=== PATIENT | female | born 1990 | race Caucasian/White ===

== ENCOUNTER → 2017-05-01 | Outpatient (CLI) | payer OTHER, BC ==
--- NOTE | 2017-05-03 12:13 | ECHOF ---
Referral Reason:R06.02 Shortness of breath R60.0 Edema MEASUREMENTS -------- HEIGHT: 170.2 cm WEIGHT: 129.3 kg BP: 133/92 RVIDd: 2.3 cm (< 3.3) IVSd: 1.2 cm (0.6 - 1.1) LVIDd: 4.7 cm (3.9 - 5.3) LVPWd: 1.1 cm (0.6 - 1.1) IVSs: 1.6 cm LVIDs: 3.6 cm LVPWs: 1.4 cm LAESV Index (A-L): 15.44 ml/m Ao Diam: 3.5 cm (2.0 - 3.7) AV Cusp: 1.9 cm (1.5 - 2.6) LA Diam: 2.9 cm (2.7 - 3.8) MV EXCURSION: 17.570 mm (> 18.000) MV EF SLOPE: 126 mm/s (70 - 150) EPSS: 1.2 cm MV E Paresh: 0.82 m/s MV DecT: 242 ms MV A Paresh: 0.53 m/s MV E/A Ratio: 1.55 RAP: 5.00 mmHg RVSP: 10.17 mmHg FINDINGS -------- Sinus rhythm. This was a technically adequate study. There is borderline concentric left ventricular hypertrophy. Overall left ventricular systolic function is normal with, an EF between 55 - 60 %. The right ventricle is normal in size and function. Normal LA size by volume 22+/-6 ml/m2. The right atrium is normal in size. The aortic valve is trileaflet, and appears structurally normal. No aortic stenosis or regurgitation. The mitral valve is normal. There is trace mitral regurgitation. Trace tricuspid regurgitation present. There is no evidence of pulmonary hypertension. The right ventricular systolic pressure, as measured by Doppler, is 10.17mmHg. The pulmonic valve is normal. The aortic root size is normal. Normal inferior vena cava with normal inspiratory collapse consistent with estimated right atrial pressure of 5 mmHg. The pericardium is normal. There is no pericardial effusion. CONCLUSIONS -------- 1. Sinus rhythm. 2. The right ventricular systolic pressure, as measured by Doppler, is 10.17mmHg. 3. The aortic root size is normal. 4. There is no pericardial effusion. 5. This was a technically adequate study. 6. There is borderline concentric left ventricular hypertrophy. 7. Overall left ventricular systolic function is normal with, an EF between 55 - 60 %. 8. Normal LA size by volume 22+/-6 ml/m2. 9. The aortic valve is trileaflet, and appears structurally normal. No aortic stenosis or regurgitation. 10. There is trace mitral regurgitation. 11. Trace tricuspid regurgitation present. 12. There is no evidence of pulmonary hypertension. STORE WARE[employer]SE ASSOCIATE: Jay Strong RDCS
== END | disposition home or self-care (01) ==
LOC: RADECHMAIN 16:36
PROVIDERS: ATTEND Family Medicine
DX: R06.02 Shortness of breath (principal); R60.0 Localized edema
CPT/HCPCS: 93306

== ENCOUNTER → 2017-05-18 | Outpatient (CLI) | payer OTHER, BC ==
[2017-05-18 16:52] LABS: Basophils # (A) 0.1 k/uL (0-0.2); Basophils % (A) 1 %; CH 30.1; CHCM 34.1; Eosinophils # (A) 0.2 k/uL (0-0.7); Eosinophils % (A) 2 %; HCT 43.3 % (34.0-46.0); HDW 2.63; Luc # (Auto) 0.37; Luc % (Auto) 4; Lymphocytes # (A) 3.3 k/uL (1.0-4.8); Lymphocytes % (A) 39 %; MCH 30.7 pg (25.0-35.0); MCHC 34.6 g/dL (31.0-37.0); MCV 88.8 fL (80.0-100.0); Mean Platelet Volume 6.6; Monocytes # (A) 0.3 k/uL (0-1.0); Monocytes % (A) 4 %; Neutrophils # (A) 4.3 k/uL (1.3-7.7); Neutrophils % (A) 50 %; RBC 4.87 m/uL (3.80-5.40); RDW 12.8 % (11.5-15.5); WBC 8.5 k/uL (3.8-10.6); WBC (Perox) 7.89
== END | disposition home or self-care (01) ==
LOC: LABPAT 16:31
PROVIDERS: ATTEND Obstetrics & Gynecology
DX: Z01.812 Encounter for preprocedural laboratory examination (principal)
CPT/HCPCS: 85025

== ENCOUNTER 2017-05-26 07:41 | Day surgery (SDC) | payer OTHER, BC ==
[2017-05-20 10:05] VITALS: BMI 46.2
--- NOTE | 2017-05-25 17:18 | P.HPOB ---
History of Present Illness H&P Date: 05/25/17 Chief Complaint: Pelvic pain This is a 26-year-old female 0 para 0 who presents for laparoscopy with possible ablation of endometriosis, possible lysis of adhesions, possible drainage of ovarian cyst. She complains of approximately 8 month history of episodic pelvic pain that is acute and generalized in her entire lower pelvis. Each episode lasts approximately 15 minutes and a sharp and crampy across her lower abdomen. She states when the pain hits she can't do anything else until the pain subsides. Occasionally heat helps a little bit. The pain only occurs when she is dreaming at night and has a dream that sexually arouses her. Pelvic ultrasound was essentially normal however left ovary was not visualized. Prior to 8 months ago, she had previously had dreams like this but no pain. She did have a similar pain when she did orgasm one time. She normally does not orgasm with intercourse. Obstetrical history: . Gynecologic history: No history of sexual transmitted diseases. She currently is on the NuvaRing for control and has no periods on the NuvaRing. Social history: She is single but has a steady boyfriend since 2014. She works in [employer]. Review of Systems Constitutional: Denies chills, Denies fever Eyes: denies blurred vision, denies pain Ears, nose, mouth and throat: Reports headache (Occasional), Denies sore throat Cardiovascular: Denies chest pain, Denies shortness of breath Respiratory: Reports as per HPI Gastrointestinal: Denies abdominal pain, Denies diarrhea, Denies nausea, Denies vomiting Genitourinary: Reports dysmenorrhea (History), Reports pelvic pain, Denies abnormal vaginal bleeding Menstruation: Reports amenorrhea on BC Musculoskeletal: Reports low back pain Integumentary: Denies pruritus, Denies rash Neurological: Reports numbness (Legs) Psychiatric: Reports anxiety, Reports depression, Reports difficulty concentrating, Reports irritability Endocrine: Denies fatigue, Denies weight change Past Medical History Additional Past Medical History / Comment(s): Herniated L5-S1, Hip Dysplasia History of Any Multi-Drug Resistant Organisms: None Reported Past Surgical History: Adenoidectomy, Tonsillectomy Past Anesthesia/Blood Transfusion Reactions: Family History of Problems w/ Anesthesia Additional Past Anesthesia/Blood Transfusion Reaction / Comment(s): Grandfather with nausea, vomiting and migraines after anesthesia. Past Psychological History: Anxiety, Depression Smoking Status: Never smoker Past Alcohol Use History: Occasional Past Drug Use History: None Reported - Past Family History Mother Family Medical History: Thyroid Disorder Medications and Allergies Home Medications Medication Instructions Recorded Confirmed Type Citalopram Hydrobromide [CeleXA] 40 mg PO HS 12/14/14 05/20/17 History Etonogestrel/Ethinyl Estradiol 1 each VG Q30D 12/14/14 05/20/17 History [Nuvaring Vaginal Ring] buPROPion [Wellbutrin] 300 mg PO HS 09/02/15 05/20/17 History Cyclobenzaprine [Flexeril] 10 mg PO BID PRN 05/20/17 05/20/17 History Diuretic(Unknown Name/Dose) 05/20/17 History Allergies Allergy/AdvReac Type Severity Reaction Status Date / Time No Known Allergies Allergy Verified 05/20/17 09:51 Exam Osteopathic Statement: *. No significant issues noted on an osteopathic structural exam other than those noted in the History and Physical/Consult. HEENT: Within normal limits Heart: Regular rate and rhythm Lungs: Clear to auscultation bilaterally Abdomen: Soft, nontender Pelvic exam: Uterus is small, anteverted, with no adnexal masses or tenderness palpated. Extremities: Negative Homans Assessment and Plan (1) Pelvic pain Status: Acute Plan: Proceed with laparoscopy, possible ablation of endometriosis, possible lysis of adhesions, and possible drainage of ovarian cyst. I have discussed the risks, benefits, and alternative therapies for the above- mentioned procedure and for both sedation/anesthesia as well as necessary blood products administration, if indicated, as they pertain to this patient. The patient has indicated her understanding and acceptance of the risks and procedures discussed.
[~2017-05-26 07:41] MED LIST: DEXAMETHASONE SOD PHOSPHATE 10 MG/ML 1 ML VIAL IV ONE; HYDROmorphone 1 MG/ML 1 ML SYRINGE IVP PRN; LACTATED RINGERS 1,000 ML IV SCH; LIDOCAINE 1% 20 ML VIAL (10MG/ML) FOR IV START INTRADERMA PRN; MIDAZOLAM 2 MG/2 ML VIAL IV PRN; ONDANSETRON 4 MG/2 ML VIAL IVP ONE; Pre Op ABX Message 1 EACH MISC MISCELLANE ONE; SCOPOLAMINE 1.5MG/72HR PATCH TRANSDERM ONE
[2017-05-26 08:46] LABS: Potassium 3.7 mmol/L (3.5-5.1)
[2017-05-26] MEDS ORDERED: MIDAZOLAM 2 MG/2 ML VIAL ONE (09:17)
[2017-05-26] MEDS ORDERED: fentaNYL (PF) 50 MCG/ML 2 ML AMP ONE (09:17)
[2017-05-26] MEDS ORDERED: PROPOFOL 10 MG/ML 20 ML VIAL IV ONE (09:17)
[2017-05-26] MEDS ORDERED: NEOSTIGMINE 1 MG/ML 10 ML VIAL ONE (09:17)
[2017-05-26] MEDS ORDERED: GLYCOPYRROLATE 0.2 MG/ML 2 ML VIAL ONE (09:17)
[2017-05-26] MEDS ORDERED: HYDROmorphone (PF) 1 MG/ML ONE (09:17)
[2017-05-26] MEDS ORDERED: LIDOCAINE 1% INJ 10MG/ML (20 ML MDV) ONE (09:17)
[2017-05-26] MEDS ORDERED: ROCURONIUM BROMIDE 10 MG/ML 10 ML VIAL IV ONE (09:17)
[2017-05-26] MEDS ORDERED: KETOROLAC 30 MG/ML 1 ML VIAL ONE (09:17)
[2017-05-26] MEDS ORDERED: SUCCINYLCHOLINE CHLORIDE 100 MG/5 ML SYR IV ONE (09:17)
[2017-05-26] MEDS ORDERED: BUPIVACAINE (PF) 0.25% 30 ML VIAL SQ ONE ×2 (09:41→09:57)
[2017-05-26 10:14] VITALS: TEMP 97.4
[2017-05-26 10:26] VITALS: RESP 16
--- NOTE | 2017-05-26 10:29 | P.OP ---
Date of Procedure: 05/26/17 Preoperative Diagnosis: Pelvic pain Postoperative Diagnosis: Pelvic pain Normal pelvis Procedure(s) Performed: Diagnostic Laparoscopy Implants: Anesthesia: BENJAMIN Surgeon: Melissa Weston Estimated Blood Loss (ml): 7 Pathology: none sent Condition: stable Disposition: same day Indications for Procedure: This is a 26-year-old female 0 para 0 who presents for laparoscopy with possible ablation of endometriosis, possible lysis of adhesions, possible drainage of ovarian cyst. She complains of approximately 8 month history of episodic pelvic pain that is acute and generalized in her entire lower pelvis. Each episode lasts approximately 15 minutes and a sharp and crampy across her lower abdomen. She states when the pain hits she can't do anything else until the pain subsides. Occasionally heat helps a little bit. The pain only occurs when she is dreaming at night and has a dream that sexually arouses her. Pelvic ultrasound was essentially normal however left ovary was not visualized. Prior to 8 months ago, she had previously had dreams like this but no pain. She did have a similar pain when she did orgasm one time. She normally does not orgasm with intercourse. Operative Findings: Normal uterus tubes and ovaries are noted. No evidence of endometriosis or pelvic adhesions are noted. Appendix is not visualized. Description of Procedure: The patient is taken to the operating room where she is placed in the dorsal lithotomy position. She is prepped and draped in the normal sterile fashion. Bladder is drained with a catheter and then removed. Examination is performed under anesthesia. Uterus is found to be mid position, with no adnexal masses palpated. Next a bivalve speculum was placed in the patient's vagina. The anterior lip of the cervix is grasped with a single-tooth tenaculum. Uterus is sounded to 9 cm. Next the cervix is gently dilated with Beckwith dilators. Next a kroner uterine manipulator is inserted through the cervix and the balloon is inflated. Next the single-tooth tenaculum and speculum are removed. A changed and attention is turned to the abdomen. The infraumbilical fold was grasped in transverse fashion with 2 Allis clamps. A small transverse incision is made with a scalpel. A hemostat is used to carry the incision down to the underlying layer of fascia. A towel clip was placed above the umbilicus for retraction. An 11 mm bladeless trocar is then inserted into the peritoneal cavity under direct visualization. Once inside the pneumoperitoneum was achieved with CO2 gas. The insert is removed and the camera was replaced. No bleeding is noted. Next a small stab incision is made suprapubically and a 5 mm disposable bladeless trocar is inserted into the peritoneal cavity under direct visualization. A probe was inserted and pelvic contents are inspected. She is placed in Trendelenburg position. The bowels removed from the pelvic region with a probe. Pictures are taken. Normal pelvis is noted. No abnormalities or endometriosis are noted. Once pictures were completed, the inferior trocar is removed under direct visualization. No bleeding is noted. Pneumoperitoneum is released and the upper trocar is removed. The fascial incision on the upper trocar site is closed with 0 Vicryl suture in an interrupted [id number] stitch. Skin incisions are then closed with 4-0 undyed Vicryl suture in a subcuticular fashion. Incision sites are then injected with quarter percent Marcaine. Approximately 6 mL are used. Next the kroner uterine manipulator is deflated and removed. All sponge and needle counts are correct.
[2017-05-26 11:35] VITALS: BP 129/80; PULSE 92
== END 2017-05-26 14:01 | disposition home or self-care (01) ==
LOC: OR 07:41
PROVIDERS: ATTEND Obstetrics & Gynecology
DX: R10.2 Pelvic and perineal pain (principal); F41.9 Anxiety disorder, unspecified; F32.9 Major depressive disorder, single episode, unspecified; Z79.899 Other long term (current) drug therapy; M51.27 Other intervertebral disc displacement, lumbosacral region
CPT/HCPCS: 81025; 80051; 49320; J2250; J1100; J2710; J2405; J2001; J3010; J1885; J1170; J0330; J2704

== ENCOUNTER 2019-05-08 19:02 | Inpatient (IN) | payer BC, OTHER ==
[2019-05-08] MEDS ORDERED: IBUPROFEN 600 MG TAB PO STA (19:44)
[2019-05-08] MEDS ORDERED: MORPHINE SULFATE 4 MG/ML SYRINGE IVP STA (19:45)
[2019-05-08] MEDS ORDERED: ONDANSETRON 4 MG/2 ML VIAL IVP STA (19:45)
--- NOTE | 2019-05-08 20:06 | ED ---
General Adult HPI - General Chief complaint: Skin/Abscess/Foreign Body Stated complaint: Urogenital Time Seen by Provider: 05/08/19 19:24 Source: patient Mode of arrival: ambulatory Limitations: no limitations - History of Present Illness Initial comments: 28-year-old female patient presents to the emergency department today for evaluation of pilonidal cyst. Patient states that she developed pain and swelling little over a week ago. States she was seen and evaluated at urgent care 7 days ago was diagnosed with pilonidal cyst and given a prescription for Bactrim. She states it did not perform incision and drainage. States she has been taking the medication however the area has been worsening in both pain and size over the last 3 days. States she developed a fever yesterday. States that today the area started to drain purulent foul-smelling drainage. States that she has been nauseated today. Denies any vomiting. Patient denies any recent rash, cough, shortness breath, chest pain, abdominal pain, diarrhea, constipation, back pain, numbness, tingling, dizziness, weakness, hematuria, dysuria, urinary urgency, urinary frequency, headache, visual changes, or any other complaints. Denies chance of . - Related Data Home Medications Medication Instructions Recorded Confirmed ARIPiprazole [Abilify] 15 mg PO HS 05/08/19 05/08/19 Citalopram Hydrobromide [CeleXA] 40 mg PO HS 05/08/19 05/08/19 Sulfamethox-Tmp 800-160Mg [Bactrim 1 tab PO BID 05/08/19 05/08/19 DS 800-160 mg] Allergies Allergy/AdvReac Type Severity Reaction Status Date / Time ibuprofen [From Motrin IB] Allergy FACE TINGLE Verified 05/08/19 22:06 Review of Systems ROS Statement: Those systems with pertinent positive or pertinent negative responses have been documented in the HPI. ROS Other: All systems not noted in ROS Statement are negative. Past Medical History Additional Past Medical History / Comment(s): Herniated L5-S1, Hip Dysplasia History of Any Multi-Drug Resistant Organisms: None Reported Past Surgical History: Adenoidectomy, Tonsillectomy Past Anesthesia/Blood Transfusion Reactions: Family History of Problems w/ Anesthesia Additional Past Anesthesia/Blood Transfusion Reaction / Comment(s): Grandfather with nausea, vomiting and migraines after anesthesia. Past Psychological History: Anxiety, Depression Smoking Status: Never smoker Past Alcohol Use History: Occasional Past Drug Use History: None Reported - Past Family History Mother Family Medical History: Thyroid Disorder General Exam Limitations: no limitations General appearance: alert, in no apparent distress, other (This is a well- developed, well-nourished adult female patient in no acute distress. Vital signs upon presentation are temperature 101.1F, pulse 110, respirations 16, blood pressure 135/88, pulse ox 96% on room air.) Eye exam: Present: normal appearance, PERRL, EOMI. Absent: scleral icterus, conjunctival injection, periorbital swelling ENT exam: Present: normal exam, normal oropharynx, mucous membranes moist Respiratory exam: Present: normal lung sounds bilaterally. Absent: respiratory distress, wheezes, rales, rhonchi, stridor Cardiovascular Exam: Present: normal rhythm, tachycardia, normal heart sounds. Absent: systolic murmur, diastolic murmur, rubs, gallop, clicks GI/Abdominal exam: Present: soft, normal bowel sounds. Absent: distended, tenderness, guarding, rebound, rigid Rectal exam: Present: other (There is abscess, erythema, cellulitis noted in the superior gluteal cleft. There is purulent drainage. No perianal tenderness.) Neurological exam: Present: alert, oriented X3, CN II-XII intact Psychiatric exam: Present: normal affect, normal mood Skin exam: Present: warm, dry, intact, normal color. Absent: rash Course Vital Signs 05/08/19 19:19 Temperature 101.1 F H Pulse Rate 110 H Respiratory 16 Rate Blood Pressure 135/88 O2 Sat by Pulse 96 Oximetry Medical Decision Making - Medical Decision Making 28-year-old female patient presented to the emergency department today for rica luation of draining pilonidal abscess. Physical examination does reveal large pilonidal abscess with surrounding cellulitis. Patient has been taking Bactrim for one week. Labs reviewed and did reveal elevated white blood cell count. Culture was sent. Patient will be admitted for failure of outpatient treatment of, and I will abscess and surgical consultation. Patient is agreeable with this plan. - Lab Data Result diagrams: 05/08/19 20:24 05/08/19 20:24 Lab Results 05/08/19 05/08/19 05/08/19 Range/Units 20:24 20:24 20:24 WBC 11.6 H (3.8-10.6) k/uL RBC 4.34 (3.80-5.40) m/uL Hgb 12.7 (11.4-16.0) gm/dL Hct 38.5 (34.0-46.0) % MCV 88.9 (80.0-100.0) fL MCH 29.4 (25.0-35.0) pg MCHC 33.1 (31.0-37.0) g/dL RDW 13.0 (11.5-15.5) % Plt Count 290 (150-450) k/uL Neutrophils % 72 % Lymphocytes % 18 % Monocytes % 5 % Eosinophils % 2 % Basophils % 0 % Neutrophils # 8.4 H (1.3-7.7) k/uL Lymphocytes # 2.1 (1.0-4.8) k/uL Monocytes # 0.6 (0-1.0) k/uL Eosinophils # 0.2 (0-0.7) k/uL Basophils # 0.0 (0-0.2) k/uL PT (9.0-12.0) sec INR (<1.2) APTT (22.0-30.0) sec Sodium 138 (137-145) mmol/L Potassium 3.7 (3.5-5.1) mmol/L Chloride 104 (98-107) mmol/L Carbon Dioxide 23 (22-30) mmol/L Anion Gap 11 mmol/L BUN 10 (7-17) mg/dL Creatinine 0.85 (0.52-1.04) mg/dL Est GFR (CKD-EPI)AfAm >90 (>60 ml/min/1.73 sqM) Est GFR (CKD-EPI)NonAf >90 (>60 ml/min/1.73 sqM) Glucose 92 (74-99) mg/dL Plasma Lactic Acid Slick 1.2 (0.7-2.0) mmol/L Calcium 8.7 (8.4-10.2) mg/dL Total Bilirubin 1.1 (0.2-1.3) mg/dL AST 20 (14-36) U/L ALT 22 (9-52) U/L Alkaline Phosphatase 63 (38-126) U/L Total Protein 7.2 (6.3-8.2) g/dL Albumin 3.7 (3.5-5.0) g/dL Urine Color Urine Appearance (Clear) Urine pH (5.0-8.0) Ur Specific [place] (1.001-1.035) Urine Protein (Negative) Urine Glucose (UA) (Negative) Urine Ketones (Negative) Urine Blood (Negative) Urine Nitrite (Negative) Urine Bilirubin (Negative) Urine Urobilinogen (<2.0) mg/dL Ur Leukocyte Esterase (Negative) Urine RBC (0-5) /hpf Urine WBC (0-5) /hpf Ur Squamous Epith Cells (0-4) /hpf Urine Bacteria (None) /hpf Urine Mucus (None) /hpf Urine HCG, Qual (Not Detectd) 05/08/19 05/08/19 05/08/19 Range/Units 20:24 21:12 21:12 WBC (3.8-10.6) k/uL RBC (3.80-5.40) m/uL Hgb (11.4-16.0) gm/dL Hct (34.0-46.0) % MCV (80.0-100.0) fL MCH (25.0-35.0) pg MCHC (31.0-37.0) g/dL RDW (11.5-15.5) % Plt Count (150-450) k/uL Neutrophils % % Lymphocytes % % Monocytes % % Eosinophils % % Basophils % % Neutrophils # (1.3-7.7) k/uL Lymphocytes # (1.0-4.8) k/uL Monocytes # (0-1.0) k/uL Eosinophils # (0-0.7) k/uL Basophils # (0-0.2) k/uL PT 10.3 (9.0-12.0) sec INR 1.0 (<1.2) APTT 25.8 (22.0-30.0) sec Sodium (137-145) mmol/L Potassium (3.5-5.1) mmol/L Chloride (98-107) mmol/L Carbon Dioxide (22-30) mmol/L Anion Gap mmol/L BUN (7-17) mg/dL Creatinine (0.52-1.04) mg/dL Est GFR (CKD-EPI)AfAm (>60 ml/min/1.73 sqM) Est GFR (CKD-EPI)NonAf (>60 ml/min/1.73 sqM) Glucose (74-99) mg/dL Plasma Lactic Acid Slick (0.7-2.0) mmol/L Calcium (8.4-10.2) mg/dL Total Bilirubin (0.2-1.3) mg/dL AST (14-36) U/L ALT (9-52) U/L Alkaline Phosphatase (38-126) U/L Total Protein (6.3-8.2) g/dL Albumin (3.5-5.0) g/dL Urine Color Yellow Urine Appearance Cloudy H (Clear) Urine pH 6.5 (5.0-8.0) Ur Specific [place] 1.031 (1.001-1.035) Urine Protein 1+ H (Negative) Urine Glucose (UA) Negative (Negative) Urine Ketones Trace H (Negative) Urine Blood Trace H (Negative) Urine Nitrite Negative (Negative) Urine Bilirubin Negative (Negative) Urine Urobilinogen >12.0 (<2.0) mg/dL Ur Leukocyte Esterase Small H (Negative) Urine RBC 6 H (0-5) /hpf Urine WBC 5 (0-5) /hpf Ur Squamous Epith Cells 3 (0-4) /hpf Urine Bacteria Few H (None) /hpf Urine Mucus Many H (None) /hpf Urine HCG, Qual Not Detected (Not Detectd) Disposition Clinical Impression: Pilonidal abscess, Cellulitis, Failure of outpatient treatment Disposition: ADMITTED IP TO THIS [facility] Condition: Serious Referrals: Cale Mary III, MD [Primary Care Provider] - 1-2 days Decision to Admit Reason: Admit from EC Decision Date: 05/08/19 Decision Time: 22:07
[2019-05-08] MEDS: SODIUM CHLORIDE 0.9% 500 ML 500 ML IV SCH ×3 (20:16→22:15)
[2019-05-08 21:00] LABS: Basophils % (A) 0 %; Eosinophils # (A) 0.2 k/uL (0-0.7); Eosinophils % (A) 2 %; HCT 38.5 % (34.0-46.0); HGB 12.7 gm/dL (11.4-16.0); Lymphocytes # (A) 2.1 k/uL (1.0-4.8); Lymphocytes % (A) 18 %; MCH 29.4 pg (25.0-35.0); MCHC 33.1 g/dL (31.0-37.0); MCV 88.9 fL (80.0-100.0); Mean Platelet Volume 7.1; Monocytes # (A) 0.6 k/uL (0-1.0); Monocytes % (A) 5 %; Neutrophils # (A) 8.4 k/uL (1.3-7.7); Neutrophils % (A) 72 %; Platelet Count 290 k/uL (150-450); RBC 4.34 m/uL (3.80-5.40); WBC 11.6 k/uL (3.8-10.6)
[2019-05-08 21:05] LABS: ALT 22 U/L (9-52); AST 20 U/L (14-36); African American GFR (CKD) >90 (>60 ml/min/1.73 sqM); Albumin 3.7 g/dL (3.5-5.0); Alkaline Phosphatase 63 U/L (38-126); Anion Gap 11 mmol/L; Blood Urea Nitrogen 10 mg/dL (7-17); Calcium 8.7 mg/dL (8.4-10.2); Carbon Dioxide 23 mmol/L (22-30); Chloride 104 mmol/L (98-107); Glucose 92 mg/dL (74-99); Potassium 3.7 mmol/L (3.5-5.1); Sodium 138 mmol/L (137-145); Total Bilirubin 1.1 mg/dL (0.2-1.3); Total Protein 7.2 g/dL (6.3-8.2)
[2019-05-08 21:15] LABS: Partial Thromboplastin Time 25.8 sec (22.0-30.0); Prothrombin Time 10.3 sec (9.0-12.0)
[2019-05-08 21:26] LABS: Appearance,Urine Cloudy (Clear); Bacteria,Urine Few /hpf; Bilirubin,Urine Negative (Negative); Blood,Urine Trace (Negative); Color,Urine Yellow; Glucose,Urine (UA) Negative (Negative); Ketones,Urine Trace (Negative); Leukocyte Esterase,Urine Small (Negative); Mucus,Urine Many /hpf; Nitrite,Urine Negative (Negative); PH, Urine 6.5 (5.0-8.0); Protein,Urine 1+ (Negative); RBC,Urine 6 /hpf (0-5); Specific Gravity,Urine 1.031 (1.001-1.035); Squamous Epithelial Cell,Urine 3 /hpf (0-4); Urobilinogen,Urine >12.0 mg/dL (<2.0); WBC,Urine 5 /hpf (0-5)
[2019-05-08] MEDS ORDERED: ACETAMINOPHEN TAB 325 MG TAB PO PRN (22:07)
[2019-05-08] MEDS ORDERED: ONDANSETRON 4 MG/2 ML VIAL IVP PRN (22:07)
[2019-05-08] MEDS ORDERED: NALOXONE 0.4 MG/ML 1 ML VIAL IV PRN (22:07)
[2019-05-08] MEDS ORDERED: VANCOMYCIN IV PER PHARMACY 1 EACH MISC MISCELLANE PRN (22:26)
[2019-05-08] MEDS ORDERED: VANCOMYCIN 2,000 MG in SODIUM CHLORIDE 0.9% 500 ML 500 ML IVPB STA (22:28)
[2019-05-08] MEDS: CITALOPRAM HYDROBROMIDE 20 MG TAB PO SCH (23:03)
[2019-05-08] MEDS: ARIPiprazole 15 MG TAB PO SCH (23:05)
[2019-05-09] MEDS: SODIUM CHLORIDE 0.9% 1,000 ML IV SCH (00:06)
[2019-05-09 05:56] LABS: Basophils % (A) 1 %; Eosinophils # (A) 0.3 k/uL (0-0.7); Eosinophils % (A) 3 %; HCT 37.8 % (34.0-46.0); HGB 12.3 gm/dL (11.4-16.0); Lymphocytes # (A) 2.6 k/uL (1.0-4.8); Lymphocytes % (A) 29 %; MCH 29.8 pg (25.0-35.0); MCHC 32.7 g/dL (31.0-37.0); MCV 91.3 fL (80.0-100.0); Mean Platelet Volume 7.3; Monocytes # (A) 0.4 k/uL (0-1.0); Monocytes % (A) 5 %; Neutrophils # (A) 5.4 k/uL (1.3-7.7); Neutrophils % (A) 60 %; Platelet Count 281 k/uL (150-450); RBC 4.14 m/uL (3.80-5.40); RDW 14.3 % (11.5-15.5); WBC 8.9 k/uL (3.8-10.6)
--- NOTE | 2019-05-09 09:31 | P.GSCN ---
History of Present Illness Consult date: 05/09/19 Reason for Consult: pilonidal abscess History of present illness: The patient is a 28-year-old female who developed an infection in a pilonidal cyst about a week ago. She was seen in urgent care and started on oral antibiotics. She was slated to see me in the office on . The drainage began yesterday and she developed worsened pain. She had a fever. It began draining and is a little less tender. No history of previous pilonidal cyst abscesses. No history of MRSA or exposure. Past Medical History Additional Past Medical History / Comment(s): Herniated L5-S1, Hip Dysplasia, pilonidal cyst 05/2019 History of Any Multi-Drug Resistant Organisms: None Reported Past Surgical History: Adenoidectomy, Tonsillectomy Past Anesthesia/Blood Transfusion Reactions: Family History of Problems w/ Anesthesia Additional Past Anesthesia/Blood Transfusion Reaction / Comm: Grandfather with nausea, vomiting and migraines after anesthesia. Past Psychological History: Anxiety, Depression Smoking Status: Never smoker Past Alcohol Use History: Occasional Past Drug Use History: None Reported - Past Family History Mother Family Medical History: Thyroid Disorder Father History Unknown: Yes Medications and Allergies Home Medications Medication Instructions Recorded Confirmed Type ARIPiprazole [Abilify] 15 mg PO HS 05/08/19 05/08/19 History Citalopram Hydrobromide [CeleXA] 40 mg PO HS 05/08/19 05/08/19 History Sulfamethox-Tmp 800-160Mg [Bactrim 1 tab PO BID 05/08/19 05/08/19 History DS 800-160 mg] Allergies Allergy/AdvReac Type Severity Reaction Status Date / Time ibuprofen [From Motrin IB] Allergy FACE TINGLE Verified 05/08/19 23:37 Surgical - Exam Osteopathic Statement: *. No significant issues noted on an osteopathic structural exam other than those noted in the History and Physical/Consult. Vital Signs Temp Pulse Resp BP Pulse Ox 101.1 F H 110 H 16 135/88 96 05/08/19 19:19 05/08/19 19:19 05/08/19 19:19 05/08/19 19:19 05/08/19 19:19 - General well developed, well nourished, no distress - Eyes normal ocular movement - Neck trachea midline - Respiratory normal respiratory effort, clear to auscultation - Integumentary There is a 5 x 12 cm area of erythema, swelling, fluctuance over the sacrum. To the right there is a skin opening with a scant amount of drainage. Results - Labs 05/09/19 05:32 05/08/19 20:24 Abnormal Lab Results - Last 24 Hours (Table) 05/08/19 05/08/19 Range/Units 20:24 21:12 WBC 11.6 H (3.8-10.6) k/uL Neutrophils # 8.4 H (1.3-7.7) k/uL Urine Appearance Cloudy H (Clear) Urine Protein 1+ H (Negative) Urine Ketones Trace H (Negative) Urine Blood Trace H (Negative) Ur Leukocyte Esterase Small H (Negative) Urine RBC 6 H (0-5) /hpf Urine Bacteria Few H (None) /hpf Urine Mucus Many H (None) /hpf Microbiology - Last 24 Hours (Table) 05/08/19 20:11 Gram Stain - Preliminary Buttock Wound Culture - Preliminary Diabetes panel 05/08/19 Range/Units 20:24 Sodium 138 (137-145) mmol/L Potassium 3.7 (3.5-5.1) mmol/L Chloride 104 (98-107) mmol/L Carbon Dioxide 23 (22-30) mmol/L BUN 10 (7-17) mg/dL Creatinine 0.85 (0.52-1.04) mg/dL Glucose 92 (74-99) mg/dL Calcium 8.7 (8.4-10.2) mg/dL AST 20 (14-36) U/L ALT 22 (9-52) U/L Alkaline Phosphatase 63 (38-126) U/L Total Protein 7.2 (6.3-8.2) g/dL Albumin 3.7 (3.5-5.0) g/dL Calcium panel 05/08/19 Range/Units 20:24 Calcium 8.7 (8.4-10.2) mg/dL Albumin 3.7 (3.5-5.0) g/dL Pituitary panel 05/08/19 Range/Units 20:24 Sodium 138 (137-145) mmol/L Potassium 3.7 (3.5-5.1) mmol/L Chloride 104 (98-107) mmol/L Carbon Dioxide 23 (22-30) mmol/L BUN 10 (7-17) mg/dL Creatinine 0.85 (0.52-1.04) mg/dL Glucose 92 (74-99) mg/dL Calcium 8.7 (8.4-10.2) mg/dL Adrenal panel 05/08/19 Range/Units 20:24 Sodium 138 (137-145) mmol/L Potassium 3.7 (3.5-5.1) mmol/L Chloride 104 (98-107) mmol/L Carbon Dioxide 23 (22-30) mmol/L BUN 10 (7-17) mg/dL Creatinine 0.85 (0.52-1.04) mg/dL Glucose 92 (74-99) mg/dL Calcium 8.7 (8.4-10.2) mg/dL Total Bilirubin 1.1 (0.2-1.3) mg/dL AST 20 (14-36) U/L ALT 22 (9-52) U/L Alkaline Phosphatase 63 (38-126) U/L Total Protein 7.2 (6.3-8.2) g/dL Albumin 3.7 (3.5-5.0) g/dL Assessment and Plan (1) Pilonidal abscess Current Visit: Yes Status: Acute Code(s): L05.01 - PILONIDAL CYST WITH ABSCESS SNOMED Code(s): 20446201 Plan: The patient will be taken to the OR for incision and drainage of abscess. The usual postoperative course was discussed. We'll need to arrange home health for wound irrigation and packing. Once infection has resolved, we can discuss a elective surgery for excision of the pilonidal cyst. I explained the reasoning for this. The procedure, risks, complications were discussed. Questions were encouraged and answered.
[2019-05-09] MEDS ORDERED: IV FLUID CONTINUATION 1,000 ML IV ONE (10:09)
[2019-05-09] MEDS ORDERED: PROPOFOL 10 MG/ML 20 ML VIAL IV ONE (10:25)
[2019-05-09] MEDS ORDERED: LIDOCAINE 1% INJ 10MG/ML (20 ML MDV) ONE (10:25)
[2019-05-09] MEDS ORDERED: fentaNYL (PF) 50 MCG/ML 2 ML AMP ONE (10:25)
[2019-05-09] MEDS ORDERED: MIDAZOLAM 2 MG/2 ML VIAL ONE (10:25)
[2019-05-09] MEDS ORDERED: NALOXONE 0.4 MG/ML 1 ML VIAL IV PRN (11:02)
[2019-05-09] MEDS ORDERED: HYDROcodone/APAP 5-325MG 1 EACH TAB PO PRN (11:02)
--- NOTE | 2019-05-09 11:06 | P.OP ---
Date of Procedure: 05/09/19 Preoperative Diagnosis: Pilonidal cyst abscess Postoperative Diagnosis: Pilonidal cyst abscess Procedure(s) Performed: Incision and drainage of pilonidal cyst abscess Anesthesia: BENJAMIN Surgeon: Yesica Prince Estimated Blood Loss (ml): 50 Pathology: none sent Condition: stable Disposition: PACU Indications for Procedure: Patient presented with a symptomatic pilonidal cyst abscess Description of Procedure: The patient was taken to the operative suite where she is prepped and draped in the usual sterile manner under general endotracheal anesthetic. A skin incision is made over the fluctuant area where there is a small amount of drainage. A finger is then used to probe the wound and break up loculations. The wound was noted to "horseshoe "over the midline. There was another superficial area to the left of the midline. A separate stab incision was made there. And was then irrigated with normal saline. It was packed with 1 inch iodoform gauze. A dressing was applied. She tolerated the procedure without difficulty and was taken recovery room in satisfactory condition. According to or personnel, ARE correct.
[2019-05-09] MEDS: MORPHINE SULFATE 4 MG/ML SYRINGE IV PRN ×4 (11:34→22:27)
--- NOTE | 2019-05-09 12:11 | P.HPIM ---
History of Present Illness This is a pleasant 28 years old female with no significant past medical history. She presents because of pilonidal cyst, from pain and swelling at the site for 1 week. On admission patient has been febrile with 101, with mild leukocytosis at 11.6 K. Around the biopsy came back to normal at 8.9K, rest of labs were unremarkable. Patient is already been evaluated by surgery team and undergone incision and drainage of the pilonidal cyst and abscess. Patient with no abdominal pain or chest pain. She is awake after the surgery but she feels a little bit lethargic. Review of Systems CONSTITUTIONAL: No fever, no malaise, no fatigue. HEENT: No recent visual problems or hearing problems. Denied any sore throat. CARDIOVASCULAR: No orthopnea, PND, no palpitations, no syncope. PULMONARY: No shortness of breath, no cough, no hemoptysis. GASTROINTESTINAL: No diarrhea, no nausea, no vomiting, no abdominal pain. Normoactive bowel sounds. NEUROLOGICAL: No headaches, no weakness, no numbness. HEMATOLOGICAL: Denies any bleeding or petechiae. GENITOURINARY: Denies any burning micturition, frequency, or urgency. MUSCULOSKELETAL/RHEUMATOLOGICAL: Denies any joint pain, swelling, or any muscle pain. ENDOCRINE: Denies any polyuria or polydipsia. Past Medical History Additional Past Medical History / Comment(s): Herniated L5-S1, Hip Dysplasia, p ilonidal cyst 05/2019 History of Any Multi-Drug Resistant Organisms: None Reported Past Surgical History: Adenoidectomy, Tonsillectomy Past Anesthesia/Blood Transfusion Reactions: Family History of Problems w/ Anesthesia Additional Past Anesthesia/Blood Transfusion Reaction / Comment(s): Grandfather with nausea, vomiting and migraines after anesthesia. Past Psychological History: Anxiety, Depression Smoking Status: Never smoker Past Alcohol Use History: Occasional Past Drug Use History: None Reported - Past Family History Mother Family Medical History: Thyroid Disorder Father History Unknown: Yes Medications and Allergies Home Medications Medication Instructions Recorded Confirmed Type ARIPiprazole [Abilify] 15 mg PO HS 05/08/19 05/08/19 History Citalopram Hydrobromide [CeleXA] 40 mg PO HS 05/08/19 05/08/19 History Sulfamethox-Tmp 800-160Mg [Bactrim 1 tab PO BID 05/08/19 05/08/19 History DS 800-160 mg] Allergies Allergy/AdvReac Type Severity Reaction Status Date / Time ibuprofen [From Motrin IB] Allergy FACE TINGLE Verified 05/08/19 23:37 Physical Exam Vitals: Vital Signs Temp Pulse Pulse Resp BP BP BP 05/09/19 11:55 97.3 F L 84 18 120/54 05/09/19 11:30 65 16 142/74 05/09/19 11:15 99.2 F 101 H 18 137/79 05/09/19 10:16 97.6 F 82 16 05/09/19 07:10 97.4 F L 83 18 05/08/19 23:58 97.7 F 74 18 05/08/19 22:23 99 F 84 17 114/63 05/08/19 19:19 101.1 F H 110 H 16 135/88 BP Pulse Ox 05/09/19 11:55 96 05/09/19 11:30 98 05/09/19 11:15 96 05/09/19 10:16 129/59 99 05/09/19 07:10 110/74 100 05/08/19 23:58 126/72 97 05/08/19 22:23 95 05/08/19 19:19 96 Intake and Output 05/08/19 05/09/19 05/09/19 22:59 06:59 14:59 Intake Total 650 Balance 650 Intake: IV 650 Other: Voiding Method Toilet Toilet # Voids 1 Weight 147.418 kg GENERAL: The patient is alert and oriented x3, not in any acute distress. Well developed, well nourished. HEENT: Pupils are round and equally reacting to light. EOMI. No scleral icterus. No conjunctival pallor. Normocephalic, atraumatic. No pharyngeal erythema. No thyromegaly. CARDIOVASCULAR: S1 and S2 present. No murmurs, rubs, or gallops. PULMONARY: Chest is clear to auscultation, no wheezing or crackles. -ABDOMEN: Soft, nontender, nondistended, normoactive bowel sounds. No palpable organomegaly. Pilonidal sinus surgical site is in dressing, patient does not want to take the dressing off today and we will defer the rest of the examination to surgery team MUSCULOSKELETAL: No joint swelling or deformity. EXTREMITIES: No cyanosis, clubbing, or pedal edema. NEUROLOGICAL: Gross neurological examination did not reveal any focal deficits. SKIN: No rashes. Results CBC & Chem 7: 05/09/19 05:32 05/08/19 20:24 Labs: Abnormal Lab Results - Last 24 Hours (Table) 05/08/19 05/08/19 Range/Units 20:24 21:12 WBC 11.6 H (3.8-10.6) k/uL Neutrophils # 8.4 H (1.3-7.7) k/uL Urine Appearance Cloudy H (Clear) Urine Protein 1+ H (Negative) Urine Ketones Trace H (Negative) Urine Blood Trace H (Negative) Ur Leukocyte Esterase Small H (Negative) Urine RBC 6 H (0-5) /hpf Urine Bacteria Few H (None) /hpf Urine Mucus Many H (None) /hpf Microbiology - Last 24 Hours (Table) 05/08/19 20:11 Gram Stain - Preliminary Buttock Wound Culture - Preliminary Thrombosis Risk Factor Assmnt - Choose All That Apply Each Factor Represents 1 point: Hx of IBD, Obesity (BMI >25) Other Risk Factors: No Other congenital or acquired thrombophilia - If yes, enter type in comment: No Thrombosis Risk Factor Assessment Total Risk Factor Score: 2 Thrombosis Risk Factor Assessment Level: Low Risk Assessment and Plan Assessment: pilonidal cyst and abscess status post I and D Systemic inflammatory response with fever and leukocytosis Sepsis secondary to above Plan: This is a pleasant 28 years old female who presents with pilonidal sinus and abscess. Status post I and D by surgical team. We'll consult infectious disease to help with antibiotics. Labs and medication were reviewed.. Continue same treatment. Continue with symptomatic treatment. Resume home medication. Monitor lytes and vitals. DVT and GI prophylaxis. Further recommendations of the clinical course of the patient DVT prophylaxis: Subcutaneous heparin GI Prophylaxis: Pepcid
[2019-05-09] MEDS: HYDROcodone/APAP 5-325MG 1 EACH TAB PO PRN ×2 (12:24→20:12)
[2019-05-09] MEDS: VANCOMYCIN 2,000 MG in SODIUM CHLORIDE 0.9% 500 ML 500 ML IVPB SCH (12:29)
--- NOTE | 2019-05-09 16:10 | P.CONS ---
History of Present Illness - Reason for Consult Consult date: 05/09/19 Infected pilonidal cyst Requesting physician: Joseluis E Sheet - Chief Complaint Pain swelling redness of the lower back area for the last few days - History of Present Illness Patient is a 28-year-old female with a past medical history significant for pilonidal cyst the patient has for a couple of months now patient started having the pain swelling redness of the pilonidal cyst about a week ago for the patient was seen in urgent care and has been started on Bactrim DS however the patient did not have any improvement patient did have worsening pain swelling redness and drainage from the pilonidal cyst area, patient describes the pain to be throbbing almost 10 out of 10 and when severe with no radiation with associated drainage of some purulent material patient presented to hospital was febrile with a temperature of 101 Fahrenheit. Did have blood work wbc of 11.6 patient has been evaluated by surgery she was taken to the OR this morning and is status post drainage of the infected pilonidal cyst culture has been obtained patient had been started on vancomycin and Rocephin infectious disease was consulted for further recommendation regarding antibiotic therapy, Review of Systems Positive point has been mentioned in the HPI rest of the systems are negative Past Medical History Additional Past Medical History / Comment(s): Herniated L5-S1, Hip Dysplasia, pilonidal cyst 05/2019 History of Any Multi-Drug Resistant Organisms: None Reported Past Surgical History: Adenoidectomy, Tonsillectomy Past Anesthesia/Blood Transfusion Reactions: Family History of Problems w/ Anesthesia Additional Past Anesthesia/Blood Transfusion Reaction / Comm: Grandfather with nausea, vomiting and migraines after anesthesia. Past Psychological History: Anxiety, Depression Smoking Status: Never smoker Past Alcohol Use History: Occasional Past Drug Use History: None Reported - Past Family History Mother Family Medical History: Thyroid Disorder Father History Unknown: Yes Medications and Allergies Home Medications Medication Instructions Recorded Confirmed Type ARIPiprazole [Abilify] 15 mg PO HS 05/08/19 05/08/19 History Citalopram Hydrobromide [CeleXA] 40 mg PO HS 05/08/19 05/08/19 History Sulfamethox-Tmp 800-160Mg [Bactrim 1 tab PO BID 05/08/19 05/08/19 History DS 800-160 mg] Allergies Allergy/AdvReac Type Severity Reaction Status Date / Time ibuprofen [From Motrin IB] Allergy FACE TINGLE Verified 05/08/19 23:37 Physical Exam Vitals: Vital Signs Temp Pulse Pulse Resp BP BP BP 05/09/19 13:40 82 115/52 05/09/19 13:10 79 110/58 05/09/19 12:40 82 117/56 05/09/19 12:25 82 129/59 05/09/19 12:10 83 115/56 05/09/19 11:55 97.3 F L 84 18 120/54 05/09/19 11:30 65 16 142/74 05/09/19 11:15 99.2 F 101 H 18 137/79 05/09/19 10:16 97.6 F 82 16 05/09/19 07:10 97.4 F L 83 18 05/08/19 23:58 97.7 F 74 18 05/08/19 22:23 99 F 84 17 114/63 05/08/19 19:19 101.1 F H 110 H 16 135/88 BP Pulse Ox 05/09/19 13:40 95 05/09/19 13:10 94 L 05/09/19 12:40 95 05/09/19 12:25 94 L 05/09/19 12:10 96 05/09/19 11:55 96 05/09/19 11:30 98 05/09/19 11:15 96 05/09/19 10:16 129/59 99 05/09/19 07:10 110/74 100 05/08/19 23:58 126/72 97 05/08/19 22:23 95 05/08/19 19:19 96 Intake and Output 05/08/19 05/09/19 05/09/19 22:59 06:59 14:59 Intake Total 650 Balance 650 Intake: IV 650 Other: Voiding Method Toilet Toilet # Voids 1 Weight 147.418 kg GENERAL DESCRIPTION: Middle-aged female lying in bed, no distress. No tachypnea or accessory muscle of respiration use. HEENT: Shows Pallor , no scleral icterus. Oral mucous membrane is dry. No pharyngeal erythema or thrush NECK: Trachea central, no thyromegaly. LUNGS: Unlabored breathing. Clear to auscultation anteriorly. No wheeze or crackle. HEART: S1, S2, regular rate and rhythm. No loud murmur ABDOMEN: Soft, no tenderness , guarding or rigidity, no organomegaly Back wound was not examined as the patient just came from OR with OR dressing intact EXTREMITIES: No edema of feet. SKIN: No rash, no masses palpable. NEUROLOGICAL: The patient is awake, alert, oriented x3, mood and affect normal. Results CBC & Chem 7: 05/09/19 05:32 05/08/19 20:24 Labs: Abnormal Lab Results - Last 24 Hours (Table) 05/08/19 05/08/19 Range/Units 20:24 21:12 WBC 11.6 H (3.8-10.6) k/uL Neutrophils # 8.4 H (1.3-7.7) k/uL Urine Appearance Cloudy H (Clear) Urine Protein 1+ H (Negative) Urine Ketones Trace H (Negative) Urine Blood Trace H (Negative) Ur Leukocyte Esterase Small H (Negative) Urine RBC 6 H (0-5) /hpf Urine Bacteria Few H (None) /hpf Urine Mucus Many H (None) /hpf Microbiology - Last 24 Hours (Table) 05/08/19 20:11 Gram Stain - Preliminary Buttock Wound Culture - Preliminary Assessment and Plan Assessment: 1-patient admitted hospital with sepsis in this patient who did have a fever tachycardia and elevated white count source is likely infected pilonidal cyst that has failed to respond to outpatient oral Bactrim DS therapy, with a question of possible community associated MRSA underlying gram-negative infection not entirely excluded (1) Sepsis Current Visit: Yes Status: Acute Code(s): A41.9 - SEPSIS, UNSPECIFIED ORGANISM SNOMED Code(s): 88908730 (2) Pilonidal abscess Current Visit: Yes Status: Acute Code(s): L05.01 - PILONIDAL CYST WITH ABSCESS SNOMED Code(s): 53650432 Plan: 1-Vancomycin pharmacy to dose target trough of 15 while watching his kidney function and Vanco trough closely 2-gentle IV fluid We will follow on clinical condition and cultures to further adjust medication if needed Thank you for this consultation will follow this patient with you Time with Patient: Greater than 30
[2019-05-09] MEDS: ARIPiprazole 15 MG TAB PO SCH (20:33)
[2019-05-09] MEDS: FAMOTIDINE 20 MG TAB PO SCH (20:33)
[2019-05-09] MEDS: CITALOPRAM HYDROBROMIDE 20 MG TAB PO SCH (20:33)
[2019-05-09] MEDS: HEPARIN SODIUM,PORCINE 5,000 UNIT/ML 1 ML VIAL SQ SCH (20:33)
[2019-05-09] MEDS ORDERED: ARIPiprazole 15 MG TAB PO SCH (21:00)
[2019-05-09] MEDS ORDERED: CITALOPRAM HYDROBROMIDE 20 MG TAB PO SCH (21:00)
[2019-05-09] MEDS ORDERED: FAMOTIDINE 20 MG/2 ML VIAL IV SCH (21:00)
[2019-05-10] MEDS: VANCOMYCIN 2,000 MG in SODIUM CHLORIDE 0.9% 500 ML 500 ML IVPB SCH ×2 (01:03→13:10)
[2019-05-10] MEDS: SODIUM CHLORIDE 0.9% 1,000 ML IV SCH ×2 (01:50→20:25)
[2019-05-10 08:37] LABS: African American GFR (CKD) >90 (>60 ml/min/1.73 sqM)
[2019-05-10] MEDS: MORPHINE SULFATE 4 MG/ML SYRINGE IV PRN ×3 (09:10→20:28)
[2019-05-10] MEDS: FAMOTIDINE 20 MG TAB PO SCH ×2 (09:17→20:28)
--- NOTE | 2019-05-10 09:45 | P.PN ---
Subjective This is a pleasant 28 years old female with no signific patient is lying in bed comfortable. . She presents because of pilonidal cyst, from pain and swelling at the site for 1 week. On admission patient has been febrile with 101, with mild leukocytosis at 11.6 K. Around the biopsy came back to normal at 8.9K, rest of labs were unremarkable. Patient is already been evaluated by surgery team and undergone incision and drainage of the pilonidal cyst and abscess. Patient with no abdominal pain or chest pain. She is awake after the surgery but she feels a little bit lethargic. 05/10/19 Waiting for her dressing to be changed. The area looks clean and dressing is in place. Patient remains on broad-spectrum antibiotics pending wound culture results. Patient will be discharged once she got clearance by other services. Vitals and labs are stable. Objective - Vital Signs Vital signs: Vital Signs Temp 97.5 F L 05/10/19 04:00 Pulse 63 05/10/19 04:00 Resp 18 05/10/19 04:00 BP 105/66 05/10/19 04:00 Pulse Ox 99 05/10/19 04:00 Intake & Output 05/09/19 05/10/19 05/10/19 18:59 06:59 18:59 Intake Total 990 Balance 990 Intake: IV 650 Oral 240 Other 100 Other: Voiding Method Toilet Toilet # Voids 1 - Exam GENERAL: The patient is alert and oriented x3, not in any acute distress. Well developed, well nourished. HEENT: Pupils are round and equally reacting to light. EOMI. No scleral icterus. No conjunctival pallor. Normocephalic, atraumatic. No pharyngeal erythema. No thyromegaly. CARDIOVASCULAR: S1 and S2 present. No murmurs, rubs, or gallops. PULMONARY: Chest is clear to auscultation, no wheezing or crackles. -ABDOMEN: Soft, nontender, nondistended, normoactive bowel sounds. No palpable organomegaly. Open wound in the middle of the buttock area, wick dressing is in place. No surrounding cellulitis MUSCULOSKELETAL: No joint swelling or deformity. EXTREMITIES: No cyanosis, clubbing, or pedal edema. NEUROLOGICAL: Gross neurological examination did not reveal any focal deficits. SKIN: No rashes. - Labs CBC & Chem 7: 05/09/19 05:32 05/10/19 07:46 Labs: Microbiology - Last 24 Hours (Table) 05/08/19 20:24 Blood Culture - Preliminary Blood No Growth after 24 hours Assessment and Plan Assessment: pilonidal cyst and abscess status post I and D Systemic inflammatory response with fever and leukocytosis Sepsis secondary to above Plan: This is a pleasant 28 years old female who presents with pilonidal sinus and abscess. Status post I and D by surgical team. We'll consult infectious disease to help with antibiotics. Labs and medication were reviewed.. Continue same treatment. Continue with symptomatic treatment. Resume home medication. Monitor lytes and vitals. DVT and GI prophylaxis. Further recommendations of the clinical course of the pat ient DVT prophylaxis: Subcutaneous heparin GI Prophylaxis: Pepcid
[2019-05-10] MEDS: HEPARIN SODIUM,PORCINE 5,000 UNIT/ML 1 ML VIAL SQ SCH ×2 (10:20→22:31)
[2019-05-10] MEDS: HYDROcodone/APAP 5-325MG 1 EACH TAB PO PRN ×3 (10:33→22:29)
--- NOTE | 2019-05-10 18:39 | PN ---
PROGRESS NOTE DATE OF SERVICE: 05/10/2019. REASON FOR FOLLOWUP: Infected pilonidal cyst. INTERVAL HISTORY: The patient is currently afebrile. The patient has been breathing comfortably. Overall pain to the pilonidal cyst area has decreased in intensity. The patient denies having any chest pain, shortness of breath or cough. No nausea, no vomiting, no abdominal pain and no diarrhea. PHYSICAL EXAMINATION: Blood pressure 125/76, pulse of 73, temperature 97.5. She is 96% on room air. General description is a middle-aged female lying in bed in no distress. RESPIRATORY SYSTEM: Unlabored breathing. Clear to auscultation anteriorly. HEART: S1, S2. Regular rate and rhythm. ABDOMEN: Soft. No tenderness. EXAMINATION OF THE PILONIDAL CYST AREA: Dressing was removed; mostly blood stain; no purulence was noticed. LABS: Hemoglobin is 12.3, white count of 8.9. Cultures currently pending. DIAGNOSTIC IMPRESSION AND PLAN: Patient with infected pilonidal cyst, status post incision and drainage. We are waiting for the culture to finalize. Patient is currently covered with Rocephin and vancomycin; to continue while monitoring clinical course and cultures closely. Continue with supportive care. MMODL / IJN: [id number] /
[2019-05-10] MEDS: ARIPiprazole 15 MG TAB PO SCH (20:27)
[2019-05-10] MEDS: CITALOPRAM HYDROBROMIDE 20 MG TAB PO SCH (20:28)
[2019-05-10] MEDS ORDERED: BISACODYL 5 MG TABLET.DR PO STA (20:39)
[2019-05-11] MEDS: VANCOMYCIN 2,000 MG in SODIUM CHLORIDE 0.9% 500 ML 500 ML IVPB SCH ×2 (01:15→14:33)
[2019-05-11] MEDS: HYDROcodone/APAP 5-325MG 1 EACH TAB PO PRN ×3 (04:15→18:03)
[2019-05-11] MEDS: MORPHINE SULFATE 4 MG/ML SYRINGE IV PRN ×3 (09:57→19:49)
[2019-05-11] MEDS: FAMOTIDINE 20 MG TAB PO SCH ×2 (09:58→19:50)
[2019-05-11] MEDS: HEPARIN SODIUM,PORCINE 5,000 UNIT/ML 1 ML VIAL SQ SCH ×3 (09:58→22:11)
[2019-05-11] MEDS ORDERED: SENNOSIDES 8.6 MG TAB PO PRN (10:12)
--- NOTE | 2019-05-11 10:49 | P.PN ---
Subjective This is a pleasant 28 years old female with no signific patient is lying in bed comfortable. . She presents because of pilonidal cyst, from pain and swelling at the site for 1 week. On admission patient has been febrile with 101, with mild leukocytosis at 11.6 K. Around the biopsy came back to normal at 8.9K, rest of labs were unremarkable. Patient is already been evaluated by surgery team and undergone incision and drainage of the pilonidal cyst and abscess. Patient with no abdominal pain or chest pain. She is awake after the surgery but she feels a little bit lethargic. 05/10/19 Waiting for her dressing to be changed. The area looks clean and dressing is in place. Patient remains on broad-spectrum antibiotics pending wound culture results. Patient will be discharged once she got clearance by other services. Vitals and labs are stable. 05/11/2019 Patient clinically looks stable with no new complaints. She still have wound and her lower back, status post I and D by surgery team, wick dressing is in a Place and still there is purulent discharge but no surrounding cellulitis. Creatinine was normal. Has been checked. Wound culture growing moderate gram- positive cocci in the Gram stain but the culture only few skin jayme. ID team and surgical team R following the case. . Objective - Vital Signs Vital signs: Vital Signs Temp 97.9 F 05/11/19 04:00 Pulse 66 05/11/19 04:00 Resp 20 05/11/19 04:00 BP 117/77 05/11/19 04:00 Pulse Ox 97 05/11/19 04:00 Intake & Output 05/10/19 05/11/19 05/11/19 18:59 06:59 18:59 Intake Total 1350 1989 Balance 1350 1989 Intake: Intake, IV Titration 850 1400 Amount Sodium Chloride 0.9% 1, 350 350 000 ml @ 50 mls/hr IV . Q20H [facility]AD Rx#:[id number] Vancomycin 2,000 mg In 500 1000 Sodium Chloride 0.9% 500 ml 500 ml @ 167 mls/hr IVPB Q12H [facility]AD Rx#: [id number] cefTRIAXone 1 gm In 50 Sodium Chloride 0.9% 50 ml @ 100 mls/hr IVPB Q24H [facility]AD Rx#:[id number] Oral 500 590 Other: Voiding Method Toilet Toilet # Voids 2 1 - Exam GENERAL: The patient is alert and oriented x3, not in any acute distress. Well developed, well nourished. HEENT: Pupils are round and equally reacting to light. EOMI. No scleral icterus. No conjunctival pallor. Normocephalic, atraumatic. No pharyngeal erythema. No thyromegaly. CARDIOVASCULAR: S1 and S2 present. No murmurs, rubs, or gallops. PULMONARY: Chest is clear to auscultation, no wheezing or crackles. -ABDOMEN: Soft, nontender, nondistended, normoactive bowel sounds. No palpable organomegaly. Open wound in the middle of the buttock area, wick dressing is in place. No surrounding cellulitis MUSCULOSKELETAL: No joint swelling or deformity. EXTREMITIES: No cyanosis, clubbing, or pedal edema. NEUROLOGICAL: Gross neurological examination did not reveal any focal deficits. SKIN: No rashes. - Labs CBC & Chem 7: 05/09/19 05:32 05/10/19 07:46 Labs: Microbiology - Last 24 Hours (Table) 05/08/19 20:24 Blood Culture - Preliminary Blood No Growth after 48 hours 05/08/19 20:11 Gram Stain - Final Buttock Wound Culture - Final Assessment and Plan Assessment: pilonidal cyst and abscess status post I and D Systemic inflammatory response with fever and leukocytosis Sepsis secondary to above Plan: This is a pleasant 28 years old female who presents with pilonidal sinus and abscess. Status post I and D by surgical team. We'll consult infectious disease to help with antibiotics. Labs and medication were reviewed.. Continue same treatment. Continue with symptomatic treatment. Resume home medication. Monitor lytes and vitals. DVT and GI prophylaxis. Further recommendations of the clinical course of the patient DVT prophylaxis: Subcutaneous heparin GI Prophylaxis: Pepcid
[2019-05-11 12:00] LABS: African American GFR (CKD) >90 (>60 ml/min/1.73 sqM); Albumin 3.1 g/dL (3.5-5.0); Anion Gap 5 mmol/L; Blood Urea Nitrogen 9 mg/dL (7-17); Calcium 8.4 mg/dL (8.4-10.2); Carbon Dioxide 27 mmol/L (22-30); Chloride 108 mmol/L (98-107); Glucose 85 mg/dL (74-99); Phosphorus 4.6 mg/dL (2.5-4.5); Potassium 4.4 mmol/L (3.5-5.1); Sodium 140 mmol/L (137-145)
[2019-05-11] MEDS ORDERED: VANCOMYCIN TROUGH DUE 1 EACH MISC MISCELLANE ONE (12:00)
--- NOTE | 2019-05-11 13:20 | PN ---
PROGRESS NOTE DATE OF SERVICE: 05/11/2019 REASON FOR FOLLOWUP: Infected pilonidal cyst wound abscess. INTERVAL HISTORY: The patient is currently afebrile. The patient has been breathing comfortably. Patient denies having any chest pain or any cough. No nausea, no vomiting. No abdominal pain or pain to the sacral wound area. PHYSICAL EXAMINATION: On examination, blood pressure 117/77 with a pulse of 76, temperature is 97.9. She is 97% on room air. General description is a middle aged female lying in bed in no distress. RESPIRATORY SYSTEM: Unlabored breathing, clear to auscultation anteriorly. HEART: S1, S2. Regular rate and rhythm. ABDOMEN: Soft, no tenderness. LABS: No new labs have been obtained today. Cultures have been pending, so far blood culture negative. DIAGNOSTIC IMPRESSION AND PLAN: Patient with infected pilonidal cyst, status post drainage. Cultures so far pending. Currently on vancomycin and Rocephin to continue. Adjusting antibiotic on the basis of the culture report. Continue with supportive care. MMODL / IJN: [id number] /
[2019-05-11] MEDS: CITALOPRAM HYDROBROMIDE 20 MG TAB PO SCH (19:50)
[2019-05-11] MEDS: ARIPiprazole 15 MG TAB PO SCH (19:50)
[2019-05-11 21:15] VITALS: RESP 18
[2019-05-11] MEDS: SODIUM CHLORIDE 0.9% 1,000 ML IV SCH (22:10)
[2019-05-12] MEDS: HYDROcodone/APAP 5-325MG 1 EACH TAB PO PRN ×2 (01:39→09:53)
[2019-05-12] MEDS: VANCOMYCIN 2,000 MG in SODIUM CHLORIDE 0.9% 500 ML 500 ML IVPB SCH ×2 (01:39→12:05)
[2019-05-12 05:15] VITALS: BP 104/65; PULSE 72; TEMP 98.1
[2019-05-12] MEDS: HEPARIN SODIUM,PORCINE 5,000 UNIT/ML 1 ML VIAL SQ SCH (09:36)
[2019-05-12] MEDS: SODIUM CHLORIDE 0.9% 1,000 ML IV SCH (09:58)
[2019-05-12] MEDS: FAMOTIDINE 20 MG TAB PO SCH (09:58)
--- NOTE | 2019-05-12 13:33 | PN ---
PROGRESS NOTE DATE OF SERVICE: 05/12/2019 REASON FOR FOLLOWUP: Infected pilonidal cyst, status post drainage. INTERVAL HISTORY: The patient is currently afebrile. Patient has been breathing comfortably. Patient denies having any chest pain, shortness of breath or cough. No abdominal pain. Pain to the sacral area. PHYSICAL EXAMINATION: On examination, blood pressure 104/65 with a pulse of 72, temperature 98.1. She is 95% on room air. General description is a middle-aged female lying in bed in no distress. RESPIRATORY SYSTEM: Unlabored breathing, clear to auscultation anteriorly. HEART: S1, S2. Regular rate and rhythm. ABDOMEN: Soft. No tenderness. LABS: Wound cultures remains to be negative so far. DIAGNOSTIC IMPRESSION AND PLAN: Patient with infected pilonidal cyst status post debridement. Culture has been negative for any resistant pathogen so far. She failed outpatient oral Bactrim. Will recommend oral Augmentin 875 b.i.d. for 10 days. Local care with Aquacel Silver packing. Follow up in the wound center next week. Prescription sent to the pharmacy. MMODL / IJN: [id number] /
[2019-05-12] MEDS: MORPHINE SULFATE 4 MG/ML SYRINGE IV PRN (15:36)
[2019-05-13] MEDS ORDERED: VANCOMYCIN TROUGH DUE 1 EACH MISC MISCELLANE ONE (12:00)
--- NOTE | 2019-05-16 00:55 | P.DS ---
Providers Date of admission: 05/10/19 13:39 Attending physician: Jeramie Foster Consults: 05/08/19 22:08 Consult Physician Routine Consulting Provider: Yesica Prince Consult Reason/Comments: Pilonidal abscess Do you want consulting provider notified?: Yes 05/09/19 12:10 Consult Physician Urgent Consulting Provider: Tere Roque Consult Reason/Comments: pilonidal abscess Do you want consulting provider notified?: Yes Primary care physician: Cale Mary Hospital Course: Discharge diagnoses pilonidal cyst and abscess status post I and D Systemic inflammatory response with fever and leukocytosis Sepsis secondary to above Hospital course This is a pleasant 28 years old female with no signific patient is lying in bed comfortable. . She presents because of pilonidal cyst, from pain and swelling at the site for 1 week. On admission patient has been febrile with 101, with mild leukocytosis at 11.6 K. Patient is already been evaluated by surgery team and undergone incision and drainage of the pilonidal cyst and abscess. Patient was treated with IV antibiotics as per infectious disease recommendation, patient showed interval improvement and local wound dressing is applied. Patient pain is controlled with medicine. Cultures were obtained and antibiotics were adjusted accordingly are as per ID team And patient is going to be discharged on Augmentin for 10 more days. Patient will need close outpatient follow-up with ID team and her PCP Dr. Mary. Also patient will follow up with the wound clinic and will be discharged with home health care. Patient was cleared for discharge by post surgery and ID team. Problems and management plan were discussed with the patient and he verbalized understanding and acceptance Patient was found stable and can be discharged home however he needs follow-up as an outpatient . pt was instructed to f/u with her pcp in one week. the patient agrees with the appointments made for her with her PCP, ID team will contact the pt .and surgery was closed , pt will make her own appointment Gen: patient is a AAOx3, no distress CVS: S1-S2, RRR, no murmur Lungs: B/L CTA, no wheezing Abdomen: soft, no distention, no tenderness, positive bowel sounds Lower back: Open wound in the middle of the buttock area, wick dressing is in place. No surrounding cellulitis Extremity: no leg edema or induration Time spent more than 35 minutes Patient Condition at Discharge: Fair Plan - Discharge Summary Discharge Rx Participant: No New Discharge Prescriptions: New Amoxic-Pot Clav 875-125Mg [Augmentin 875-125] 1 tab PO Q12HR #20 tablet HYDROcodone/APAP 7.5-325MG [[place] 7.5-325] 1 tab PO Q6HR PRN 3 Days #12 tab PRN Reason: Pain Control Sennosides [Senokot] 8.6 mg PO BID PRN #10 tab PRN Reason: Constipation Continue Citalopram Hydrobromide [CeleXA] 40 mg PO HS ARIPiprazole [Abilify] 15 mg PO HS Discontinued Sulfamethox-Tmp 800-160Mg [Bactrim DS 800-160 mg] 1 tab PO BID Discharge Medication List ARIPiprazole [Abilify] 15 mg PO HS 05/08/19 [History] Citalopram Hydrobromide [CeleXA] 40 mg PO HS 05/08/19 [History] Amoxic-Pot Clav 875-125Mg [Augmentin 875-125] 1 tab PO Q12HR #20 tablet 05/12/19 [Rx] HYDROcodone/APAP 7.5-325MG [[place] 7.5-325] 1 tab PO Q6HR PRN 3 Days #12 tab 05/12/19 [Rx] Sennosides [Senokot] 8.6 mg PO BID PRN #10 tab 05/12/19 [Rx] Follow up Appointment(s)/Referral(s): Yesica Prince DO [Doctor of Osteopathic Medicine] - 1 Week (Patient to call Dr. Prince's office Thursday morning to schedule follow up appointment. The office is closed at time of discharge. ) Cale Mary III, MD [Primary Care Provider] - 05/17/19 11:30 am Tere Roque MD [STAFF PHYSICIAN] - ([facility] will be calling patient to schedule follow up appointmenet. ) [facility] Visiting Nurse, [NON-STAFF] - 1-2 Days Patient Instructions/Handouts: Hydrocodone/Acetaminophen (By mouth), Amoxicillin/Clavulanate Potassium (By mouth), Cellulitis (DC), Sepsis (GEN), Abscess (ED) Activity/Diet/Wound Care/Special Instructions: Instructions for home nursing. Pack with Aquacel silver q48hr follow up in wound care 1 week , to make an appointment Discharge/Stand Alone Forms: Work/School Release, Work/School Release / Restrict Discharge Disposition: HOME WITH HOME HEALTH SERVICES
--- NOTE | 2019-05-17 00:14 | CDI ---
Documentation Clarification Form Date: 05/17/19 From: Matt Villalpando Phone: call to [phone] Admit Date: 05/10/2019 1:39:00 PM Patient Name: Nikia oFy Visit Number: [id number] Discharge Date: 05/12/2019 4:41:00 PM ATTENTION: The Clinical Documentation Specialists (CDI) and [facility] Coding Staff appreciate your assistance in clarifying documentation. Please respond to the clarification below the line at the bottom and electronically sign. The CDI & [facility] Coding staff will review the response and follow-up if needed. Please note: Queries are made part of the Legal Health Record. If you have any questions, please contact the author of this message via ITS. Dr. Yesica Prince, Per your operative note, a Incision and drainage was performed on pilondal cyst. History/Risk Factors: Pilondal cyst/abscess. Treatment: I&D Procedure. In OP Report Mentioned as "The wound was noted to "horseshoe "over the midline.There was another superficial area to the left of the midline.A separate stab incision was made there.And was then irrigated with normal saline.Itwas packed with 1 inch iodoform gauze.A dressing was applied". In order to capture the severity of condition and code the appropriate procedure; could you please document the following: Depth of the incision (e.g., skin, subcutaneous tissue, fascia, muscle, bone, etc.) Other; please specify Unable to determine. Subcutaneous tissue MTDD
== END 2019-05-12 16:41 | disposition home health service (06) | DRG 854 ==
LOC: EC 19:02 → 1SOBS 21:35 → 3NMEDONC 05-09 18:15 → OBSVTOIN 05-10 13:39
PROVIDERS: ADMIT Hospitalist; ATTEND Hospitalist
PROC: 0J990ZZ Drainage of Buttock Subcutaneous Tissue and Fascia, Open Approach (ICD-10-PCS; principal; 2019-05-09 09:55)
DX: A41.9 Sepsis, unspecified organism (principal); L05.01 Pilonidal cyst with abscess; F41.9 Anxiety disorder, unspecified; F32.9 Major depressive disorder, single episode, unspecified; Q65.89 Other specified congenital deformities of hip; Z88.6 Allergy status to analgesic agent; Z90.49 Acquired absence of other specified parts of digestive tract; Z90.89 Acquired absence of other organs; Z83.49 Family history of other endocrine, nutritional and metabolic diseases
CPT/HCPCS: 36415; 80048; 80053; 80069; 80202; 81001; 81025; 82565; 83605; 85025; 85610; 85730; 87040; 87070; 87205; 96361; 96374; 96375; 99284

== ENCOUNTER 2019-06-14 11:37 | Day surgery (SDC) | payer BC ==
[2019-06-13 09:29] VITALS: BMI 50.8
[~2019-06-14 11:37] MED LIST changes: -DEXAMETHASONE SOD PHOSPHATE 10 MG/ML 1 ML VIAL IV ONE; -HYDROmorphone 1 MG/ML 1 ML SYRINGE IVP PRN; -LACTATED RINGERS 1,000 ML IV SCH; -LIDOCAINE 1% 20 ML VIAL (10MG/ML) FOR IV START INTRADERMA PRN; -MIDAZOLAM 2 MG/2 ML VIAL IV PRN; -ONDANSETRON 4 MG/2 ML VIAL IVP ONE; -Pre Op ABX Message 1 EACH MISC MISCELLANE ONE; -SCOPOLAMINE 1.5MG/72HR PATCH TRANSDERM ONE; +ceFAZolin 3 GM in SODIUM CHLORIDE 0.9% 100 ML IVPB ONE; +metroNIDAZOLE-NS PMX 500 MG in SALINE 1 100ML.BAG IVPB ONE
[2019-06-14] MEDS ORDERED: LACTATED RINGERS 1,000 ML IV ONE (12:06)
[2019-06-14] MEDS ORDERED: ONDANSETRON 4 MG/2 ML VIAL IVP ONE ×2 (12:07→14:55)
[2019-06-14] MEDS ORDERED: LIDOCAINE 1% 20 ML VIAL (10MG/ML) FOR IV START SQ ONE (12:07)
[2019-06-14] MEDS ORDERED: SUCCINYLCHOLINE CHLORIDE VIAL 200 MG/10 ML VIAL IV ONE (12:35)
[2019-06-14] MEDS ORDERED: MIDAZOLAM 2 MG/2 ML VIAL ONE (12:35)
[2019-06-14] MEDS ORDERED: fentaNYL (PF) 50 MCG/ML 2 ML AMP ONE (12:35)
[2019-06-14] MEDS ORDERED: PROPOFOL 10 MG/ML 20 ML VIAL IV ONE (12:35)
[2019-06-14] MEDS ORDERED: LIDOCAINE 1% INJ 10MG/ML (20 ML MDV) ONE (12:35)
[2019-06-14] MEDS ORDERED: BUPIVACAIN-EPI 0.25%-1:200,000 30 ML VIAL SQ ONE (12:47)
--- NOTE | 2019-06-14 14:01 | P.OP ---
Date of Procedure: 06/14/19 Preoperative Diagnosis: Pilonidal cyst Postoperative Diagnosis: Pilonidal cyst Procedure(s) Performed: Pilonidal cystectomy Anesthesia: BENJAMIN Surgeon: Yesica Prince Estimated Blood Loss (ml): 50 Pathology: other (Pilonidal cyst) Condition: stable Disposition: PACU Indications for Procedure: The patient had presented with a pilonidal cyst abscess which was treated with I&D. She now presents for resection Description of Procedure: The patient was taken the operative suite where she is prepped and draped in the usual sterile manner under general endotracheal anesthetic. Local anesthetic is instilled in the skin and subcutaneous tissue. An elliptical incision was made around the pilonidal cyst dimples along with a small opening in the skin inferiorly. The subcutaneous tissues are then divided with cautery. The specimen was passed off. Small bleeding points are controlled with electrocautery. The defect is about 10 cm long and about 6 cm deep. Due to the large subcutaneous defect a drain was placed through small stab incision. It was sutured in place using 3-0 nylon. The subcutaneous tissues are then approximated using 2-0 Vicryl. The skin was closed with 4-0 Monocryl. Dermabond equivalent was used to seal the skin edges. A dressing was applied. She tolerated the procedure without difficulty and was taken recovery room in satisfactory condition. According to or personnel, all counts were correct. Plan - Discharge Summary Discharge Rx Participant: Yes New Discharge Prescriptions: New HYDROcodone/APAP 5-325MG [Ragland 5-325] 1 - 2 tab PO Q4H PRN #20 tab PRN Reason: Pain No Action Citalopram Hydrobromide [CeleXA] 40 mg PO HS ARIPiprazole [Abilify] 15 mg PO HS Etonogestrel [Nexplanon] 68 mg SQ CONTINUOUS Discharge Medication List ARIPiprazole [Abilify] 15 mg PO HS 05/08/19 [History] Citalopram Hydrobromide [CeleXA] 40 mg PO HS 05/08/19 [History] Etonogestrel [Nexplanon] 68 mg SQ CONTINUOUS 06/13/19 [History] HYDROcodone/APAP 5-325MG [Ragland 5-325] 1 - 2 tab PO Q4H PRN #20 tab 09/10/19 [Rx] Follow up Appointment(s)/Referral(s): Yesica Prince DO [Doctor of Osteopathic Medicine] - 1 Week Patient Instructions/Handouts: Laci-Beckwith Drain Care (GEN) Activity/Diet/Wound Care/Special Instructions: Ice to the incision 24-48 hours. Change the dressing as needed. Clean around the drain tube site daily with an alcohol pad. Small amount of antibiotic ointment to the surrounding skin. No showering while the drain is in place. Empty the drain 3 times per day. He may take Tylenol or Motrin instead of the pain pills. Call if questions or concerns.
[2019-06-14 14:13] VITALS: TEMP 97.1
[2019-06-14] MEDS: HYDROmorphone 1 MG/ML 1 ML SYRINGE IVP ONE ×2 (14:55→15:01)
[2019-06-14 15:28] VITALS: RESP 18
[2019-06-14 15:29] VITALS: BP 129/76; PULSE 92
== END 2019-06-14 16:08 | disposition home or self-care (01) ==
LOC: OR 11:37
PROVIDERS: ATTEND Surgery
DX: L05.01 Pilonidal cyst with abscess (principal); F32.9 Major depressive disorder, single episode, unspecified; F41.9 Anxiety disorder, unspecified; Z86.19 Personal history of other infectious and parasitic diseases; Z88.6 Allergy status to analgesic agent; Z88.8 Allergy status to other drugs, medicaments and biological substances; Z79.3 Long term (current) use of hormonal contraceptives; Z90.89 Acquired absence of other organs; Z98.890 Other specified postprocedural states; Z83.49 Family history of other endocrine, nutritional and metabolic diseases; Z79.899 Other long term (current) drug therapy
CPT/HCPCS: 11771; 81025; 88304; 84703; J2250; J0330; J0690; J2405; J2001; J3010; J1170; J2704

== ENCOUNTER 2019-07-06 20:05 | Emergency (ER) | payer BC ==
[2019-07-06 20:18] VITALS: BP 144/85; PULSE 104; RESP 18; TEMP 98.5
--- NOTE | 2019-07-06 21:44 | ED ---
General Adult HPI - General Chief complaint: Wound/Laceration Stated complaint: poss incision infection Time Seen by Provider: 07/06/19 20:39 Source: patient Mode of arrival: ambulatory - History of Present Illness Initial comments: Patient is a 28-year-old female presenting to the emergency department with a chief complaint of an infected wound. Patient reports she had a pilonidal cyst removed by Dr. Canas about 25 days ago. Patient reports the incision site is healing well until a few days ago she had developed increased pain in the region. Patient also reported 2 days ago she noticed clear drainage from the incision site. Patient was evaluated by the surgeon who suspected a possible infection and placed the patient on Cipro. Patient has only taken one dose of C ipro. Patient reports the incision site is draining continually and there is surrounding erythema as well. Patient also reports increased swelling in the region. Patient denies taking pain medication to alleviate the symptoms. - Related Data Home Medications Medication Instructions Recorded Confirmed ARIPiprazole [Abilify] 15 mg PO HS 05/08/19 07/06/19 Etonogestrel [Nexplanon] 68 mg INTRADERMA CONTINUOUS 06/13/19 07/06/19 Venlafaxine HCl [Effexor XR] 75 mg PO HS 07/06/19 07/06/19 Previous Rx's Medication Instructions Recorded Amoxicillin/Potassium Clav 1 tab PO Q12HR #20 tab 07/06/19 [Augmentin 875-125 Tablet] Allergies Allergy/AdvReac Type Severity Reaction Status Date / Time acetaminophen Allergy Rash/Hives Verified 07/06/19 20:40 [From Excedrin Migraine] aspirin Allergy Rash/Hives Verified 07/06/19 20:40 [From Excedrin Migraine] caffeine Allergy Rash/Hives Verified 07/06/19 20:40 [From Excedrin Migraine] Review of Systems ROS Statement: Those systems with pertinent positive or pertinent negative responses have been documented in the HPI. ROS Other: All systems not noted in ROS Statement are negative. Past Medical History Additional Past Medical History / Comment(s): Herniated L5-S1, Hip Dysplasia, pilonidal cyst 05/2019 migranes History of Any Multi-Drug Resistant Organisms: None Reported Past Surgical History: Adenoidectomy, Tonsillectomy Additional Past Surgical History / Comment(s): I&D 05/2019 Past Anesthesia/Blood Transfusion Reactions: Family History of Problems w/ Anesthesia Additional Past Anesthesia/Blood Transfusion Reaction / Comment(s): Grandfather with nausea, vomiting and migraines after anesthesia. Past Psychological History: Anxiety, Bipolar, Depression Smoking Status: Never smoker Past Alcohol Use History: Occasional Past Drug Use History: None Reported - Past Family History Mother Family Medical History: Thyroid Disorder Father History Unknown: Yes General Exam Limitations: no limitations General appearance: alert, in no apparent distress Head exam: Present: atraumatic, normocephalic, normal inspection Eye exam: Present: normal appearance Pupils: Present: normal accommodation ENT exam: Present: normal exam, mucous membranes moist Neck exam: Present: normal inspection Respiratory exam: Present: normal lung sounds bilaterally Cardiovascular Exam: Present: regular rate, normal rhythm, normal heart sounds Extremities exam: Present: normal inspection, full ROM Back exam: Present: full ROM, tenderness (Tenderness at the incision site.). Absent: normal inspection (Incision site from dialysis. Erythema and edema at the incision site. Thompson/yellow drainage. Open wound.) Neurological exam: Present: alert, oriented X3 Psychiatric exam: Present: normal affect, normal mood Skin exam: Present: warm, intact, normal color Course Vital Signs 07/06/19 20:13 Temperature 98.5 F Pulse Rate 104 H Respiratory 18 Rate Blood Pressure 144/85 O2 Sat by Pulse 100 Oximetry Medical Decision Making - Medical Decision Making Patient is a 28-year-old female presenting to emergency Department with a chief complaint of an infected wound. Patient had a pilonidal cyst removal about 25 days ago. Patient reports healing of the incision site until a few days ago she has developed increased pain. Patient has also developed clear discharge and after she was evaluated by the surgeon who placed the patient on Cipro. Patient is only taking one dose of the medication so far. Patient reports the pain is still increasing along with the discharge. Dr. Hurt with the surgeon who suggested the patient be placed on Augmentin. Patient will also be discharged with Augmentin. I offered analgesia but the patient declined. Patient states that she has an appointment to see the surgeon within a week. Strict return parameters were thoroughly discussed with patient was understanding and agreeable. Case discussed with physician. Disposition Clinical Impression: Superficial incisional infection of surgical site Disposition: HOME SELF-CARE Condition: Stable Instructions (If sedation given, give patient instructions): Pilonidal Cyst Excision (DC) Additional Instructions: Please take prescribed medication and follow-up with the surgeon. Please return to emergency department symptoms worsen. Prescriptions: Amoxicillin/Potassium Clav [Augmentin 875-125 Tablet] 1 tab PO Q12HR #20 tab Is patient prescribed a controlled substance at d/c from ED?: No Referrals: Cale Mary III, MD [Primary Care Provider] - 1-2 days Time of Disposition: 22:22
[2019-07-06] MEDS ORDERED: AMOXIC-POT CLAV 875-125MG 1 EACH TAB PO STA (22:19)
== END 2019-07-06 22:46 | disposition home or self-care (01) ==
LOC: EC 20:05
DX: T81.49XA Infection following a procedure, other surgical site, initial encounter (principal); F41.9 Anxiety disorder, unspecified; F31.9 Bipolar disorder, unspecified; Z79.899 Other long term (current) drug therapy; Z79.3 Long term (current) use of hormonal contraceptives; Z88.6 Allergy status to analgesic agent; Z88.8 Allergy status to other drugs, medicaments and biological substances
CPT/HCPCS: 99283

== ENCOUNTER 2019-11-01 00:22 | Emergency (ER) | payer BC, OTHER ==
[2019-11-01 00:36] VITALS: RESP 20
--- NOTE | 2019-11-01 01:00 | XR ---
EXAMINATION TYPE: XR chest 2V DATE OF EXAM: 11/01/2019 COMPARISON: NONE HISTORY: Cough TECHNIQUE: FINDINGS: Heart and mediastinum are normal. Lungs are clear. Diaphragm is normal. Bony thorax appears normal. IMPRESSION: Normal chest
[2019-11-01] MEDS ORDERED: IBUPROFEN 800 MG TAB PO STA (01:20)
--- NOTE | 2019-11-01 01:22 | ED ---
General Adult HPI - General Chief complaint: Upper Respiratory Infection Stated complaint: Upper Resp Time Seen by Provider: 11/01/19 00:38 Source: patient, family Mode of arrival: ambulatory Limitations: no limitations - History of Present Illness Initial comments: Patient is a 29-year-old female with no significant past medical history presenting to emergency Department with a chief complaint of cough and fever. Patient reports symptoms began about 8 hours prior to arrival. Patient reports 2 episodes of posttussive emesis. Patient states the cough is nonproductive in nature. She does report pleuritic chest pain is exacerbated after coughing fits. Patient does also report a sore throat. She believes there was some wheezing at home. Denies any wheezing currently or shortness of breath. Patient denies smoking or history of asthma. Patient denies taking medication at home. Denies any abdominal pain back pain or diarrhea. Patient denies unilateral leg swelling, hemoptysis, oral contraceptive use, recent prolonged periods of activity, previous History of PE or DVT. - Related Data Home Medications Medication Instructions Recorded Confirmed ARIPiprazole [Abilify] 15 mg PO HS 05/08/19 07/06/19 Etonogestrel [Nexplanon] 68 mg INTRADERMA CONTINUOUS 06/13/19 07/06/19 Venlafaxine HCl [Effexor XR] 75 mg PO HS 07/06/19 07/06/19 Previous Rx's Medication Instructions Recorded Amoxicillin/Potassium Clav 1 tab PO Q12HR #20 tab 07/06/19 [Augmentin 875-125 Tablet] Albuterol Inhaler [Ventolin Hfa 1 - 2 puff INHALATION RT-Q6H PRN 11/01/19 Inhaler] #1 inhaler methylPREDNISolone [Medrol Dose 4 mg PO DIRECTED #1 pack 11/01/19 Pack] Allergies Allergy/AdvReac Type Severity Reaction Status Date / Time acetaminophen Allergy Rash/Hives Verified 11/01/19 00:36 [From Excedrin Migraine] aspirin Allergy Rash/Hives Verified 11/01/19 00:36 [From Excedrin Migraine] caffeine Allergy Rash/Hives Verified 11/01/19 00:36 [From Excedrin Migraine] Review of Systems ROS Statement: Those systems with pertinent positive or pertinent negative responses have been documented in the HPI. ROS Other: All systems not noted in ROS Statement are negative. Past Medical History Additional Past Medical History / Comment(s): Herniated L5-S1, Hip Dysplasia, pilonidal cyst 05/2019 migranes History of Any Multi-Drug Resistant Organisms: None Reported Past Surgical History: Adenoidectomy, Tonsillectomy Additional Past Surgical History / Comment(s): I&D 05/2019 Past Anesthesia/Blood Transfusion Reactions: Family History of Problems w/ Anesthesia Additional Past Anesthesia/Blood Transfusion Reaction / Comment(s): Grandfather with nausea, vomiting and migraines after anesthesia. Past Psychological History: Anxiety, Bipolar, Depression Smoking Status: Never smoker Past Alcohol Use History: Occasional Past Drug Use History: None Reported - Past Family History Mother Family Medical History: Thyroid Disorder Father History Unknown: Yes General Exam Limitations: no limitations General appearance: alert, in no apparent distress Head exam: Present: atraumatic, normocephalic, normal inspection Eye exam: Present: normal appearance, PERRL, EOMI Pupils: Present: normal accommodation ENT exam: Present: normal exam, mucous membranes moist Neck exam: Present: normal inspection, full ROM Respiratory exam: Present: normal lung sounds bilaterally. Absent: respiratory distress, wheezes, rales, chest wall tenderness Cardiovascular Exam: Present: normal rhythm, tachycardia, normal heart sounds Extremities exam: Present: normal inspection, full ROM Back exam: Present: normal inspection, full ROM Neurological exam: Present: alert, oriented X3 Psychiatric exam: Present: normal affect, normal mood Skin exam: Present: warm, dry, intact, normal color Course Vital Signs 11/01/19 11/01/19 11/01/19 00:33 00:51 02:34 Temperature 100.8 F H 100.7 F H Pulse Rate 112 H 105 H Respiratory 20 20 20 Rate Blood Pressure 131/83 136/83 O2 Sat by Pulse 99 96 Oximetry Medical Decision Making - Medical Decision Making Patient is a 29-year-old female who significant past medical history presenting to the emergency department with a chief complaint of cough and fever. She states this started about 8 hours prior to arrival. Physical examination patient is not in respiratory distress. No wheezing. Patient does have a sore throat but no sinus tenderness or otalgia. Chest x-ray is unremarkable. No history of asthma or smoking. Influenza negative. I suspect the patient has developed acute bronchitis. Patient was given antipyretics in the ED. Patient does have good oxygen saturation. Patient was to continue alternating between Tylenol and Motrin to control the fever. Chest pain only occurs after coughing fits. Patient discharged with an albuterol inhaler and medrol dosepak. Strict return parameters were thoroughly discussed patient was understanding and agreeable. Patient vised to follow up primary care. Case discussed with physician. - Lab Data Lab Results 11/01/19 Range/Units 01:40 Influenza Type A RNA Not Detected (Not Detectd) Influenza Type B (PCR) Not Detected (Not Detectd) Disposition Clinical Impression: Cough, Acute bronchitis Disposition: HOME SELF-CARE Condition: Stable Instructions (If sedation given, give patient instructions): Acute Bronchitis (ED) Additional Instructions: Follow-up with primary care. Take prescribed medication as directed. Return to emergency department if symptoms worsen. Prescriptions: methylPREDNISolone [Medrol Dose Pack] 4 mg PO DIRECTED #1 pack Albuterol Inhaler [Ventolin Hfa Inhaler] 1 - 2 puff INHALATION RT-Q6H PRN #1 inhaler PRN Reason: Shortness Of Breath Is patient prescribed a controlled substance at d/c from ED?: No Referrals: Cale Mary III, MD [Primary Care Provider] - 1-2 days Time of Disposition: 02:14
[2019-11-01 02:35] VITALS: BP 136/83; PULSE 105; TEMP 100.7
== END 2019-11-01 02:37 | disposition home or self-care (01) ==
LOC: EC 00:22
DX: J20.9 Acute bronchitis, unspecified (principal); R11.10 Vomiting, unspecified; F32.9 Major depressive disorder, single episode, unspecified; F41.9 Anxiety disorder, unspecified; Z97.5 Presence of (intrauterine) contraceptive device; Z79.899 Other long term (current) drug therapy; Z88.6 Allergy status to analgesic agent; Z88.8 Allergy status to other drugs, medicaments and biological substances
CPT/HCPCS: 71046; 87502; 99283

== ENCOUNTER 2020-05-02 22:57 | Emergency (ER) | payer OTHER ==
[2020-05-02] MEDS ORDERED: SODIUM CHLORIDE 0.9% 1,000 ML IV STA (23:34)
--- NOTE | 2020-05-02 23:47 | ED ---
Arrhythmia/Palpitations HPI - General Chief Complaint: Arrhythmia/Palpitations Stated Complaint: chest tightness, difficulty breathing Time Seen by Provider: 05/02/20 23:13 Source: patient, RN notes reviewed, old records reviewed Mode of arrival: wheelchair - History of Present Illness Initial Comments: This is a 21-year-old female DF for evaluation. Patient Dese for evaluation regarding possible arrhythmia she missed of feeling flushed without fever. Feels that she has anterior substernal chest pain but feels that she's feeling her heartbeat. Mild nausea no active vomiting no history of surgery no pregnancies no significant medical complaint MD Complaint: rapid heart beat, palpitations -: hour(s) (Symptoms started 1 hour prior to arrival) Context: occurred during rest Arrhythmia History: other (No similar events) Associated Symptoms: chest pain, anxiety Treatments Prior to Arrival: other (Does take anxiety medication) - Related Data Home Medications Medication Instructions Recorded Confirmed ARIPiprazole [Abilify] 15 mg PO HS 05/08/19 07/06/19 Etonogestrel [Nexplanon] 68 mg INTRADERMA CONTINUOUS 06/13/19 07/06/19 Venlafaxine HCl [Effexor XR] 75 mg PO HS 07/06/19 07/06/19 Previous Rx's Medication Instructions Recorded Amoxicillin/Potassium Clav 1 tab PO Q12HR #20 tab 07/06/19 [Augmentin 875-125 Tablet] Albuterol Inhaler (Mhu) [Ventolin 1 - 2 puff INHALATION RT-Q6H PRN 11/01/19 Hfa Inhaler (Mhu)] #1 inhaler methylPREDNISolone [Medrol Dose 4 mg PO DIRECTED #1 pack 11/01/19 Pack] Allergies Allergy/AdvReac Type Severity Reaction Status Date / Time acetaminophen Allergy Rash/Hives Verified 05/02/20 23:06 [From Excedrin Migraine] caffeine Allergy Rash/Hives Verified 05/02/20 23:06 [From Excedrin Migraine] Review of Systems ROS Statement: Those systems with pertinent positive or pertinent negative responses have been documented in the HPI. ROS Other: All systems not noted in ROS Statement are negative. Past Medical History Additional Past Medical History / Comment(s): Herniated L5-S1, Hip Dysplasia, pilonidal cyst 05/2019 migranes History of Any Multi-Drug Resistant Organisms: None Reported Past Surgical History: Adenoidectomy, Tonsillectomy Additional Past Surgical History / Comment(s): I&D 05/2019 Past Anesthesia/Blood Transfusion Reactions: Family History of Problems w/ Anesthesia Additional Past Anesthesia/Blood Transfusion Reaction / Comment(s): Grandfather with nausea, vomiting and migraines after anesthesia. Past Psychological History: Anxiety, Bipolar, Depression Smoking Status: Never smoker Past Alcohol Use History: Occasional Past Drug Use History: None Reported - Past Family History Mother Family Medical History: Thyroid Disorder Father History Unknown: Yes General Exam General appearance: alert, in no apparent distress Head exam: Present: atraumatic, normocephalic, normal inspection Eye exam: Present: normal appearance, PERRL, EOMI. Absent: scleral icterus, conjunctival injection, periorbital swelling ENT exam: Present: normal exam, mucous membranes moist Neck exam: Present: normal inspection. Absent: tenderness, meningismus, lymphadenopathy Respiratory exam: Present: normal lung sounds bilaterally. Absent: respiratory distress, wheezes, rales, rhonchi, stridor Cardiovascular Exam: Present: regular rate, normal rhythm, normal heart sounds. Absent: systolic murmur, diastolic murmur, rubs, gallop, clicks GI/Abdominal exam: Present: soft, normal bowel sounds. Absent: distended, te nderness, guarding, rebound, rigid Extremities exam: Present: normal inspection, full ROM, normal capillary refill. Absent: tenderness, pedal edema, joint swelling, calf tenderness Back exam: Present: normal inspection Neurological exam: Present: alert, oriented X3, CN II-XII intact Psychiatric exam: Present: normal affect, normal mood Skin exam: Present: warm, dry, intact, normal color. Absent: rash Course Vital Signs 05/02/20 05/03/20 23:03 01:04 Temperature 98.8 F 98.1 F Pulse Rate 83 74 Respiratory 18 18 Rate Blood Pressure 137/90 105/61 O2 Sat by Pulse 98 100 Oximetry - Reevaluation(s) Reevaluation #1: 05/03/20 00:13 Medical records reviewed Reevaluation #2: 05/03/20 01:53 Patient informed results questions answered Reevaluation #3: 05/03/20 01:53 Pain so that the patient feels okay for discharge home, no shortness of breath Medical Decision Making - Medical Decision Making 29 female to the ER for evaluation of palpitations. Not feeling well. All evaluation here in the ER looks well. Patient can be discharged home - Lab Data Result diagrams: 05/03/20 00:02 05/03/20 00:02 Lab Results 05/03/20 05/03/20 05/03/20 Range/Units 00:02 00:02 00:02 WBC 11.1 H (3.8-10.6) k/uL RBC 4.80 (3.80-5.40) m/uL Hgb 14.6 (11.4-16.0) gm/dL Hct 43.6 (34.0-46.0) % MCV 90.9 (80.0-100.0) fL MCH 30.3 (25.0-35.0) pg MCHC 33.3 (31.0-37.0) g/dL RDW 13.4 (11.5-15.5) % Plt Count 278 (150-450) k/uL Neutrophils % 54 % Lymphocytes % 36 % Monocytes % 4 % Eosinophils % 3 % Basophils % 0 % Neutrophils # 6.0 (1.3-7.7) k/uL Lymphocytes # 4.0 (1.0-4.8) k/uL Monocytes # 0.5 (0-1.0) k/uL Eosinophils # 0.3 (0-0.7) k/uL Basophils # 0.0 (0-0.2) k/uL PT 9.7 (9.0-12.0) sec INR 0.9 (<1.2) APTT 26.0 (22.0-30.0) sec D-Dimer 0.36 (<0.60) mg/L FEU Sodium 140 (137-145) mmol/L Potassium 4.0 (3.5-5.1) mmol/L Chloride 109 H (98-107) mmol/L Carbon Dioxide 23 (22-30) mmol/L Anion Gap 8 mmol/L BUN 14 (7-17) mg/dL Creatinine 0.63 (0.52-1.04) mg/dL Est GFR (CKD-EPI)AfAm >90 (>60 ml/min/1.73 sqM) Est GFR (CKD-EPI)NonAf >90 (>60 ml/min/1.73 sqM) Glucose 104 H (74-99) mg/dL Calcium 9.2 (8.4-10.2) mg/dL Magnesium 2.0 (1.6-2.3) mg/dL Total Bilirubin 0.6 (0.2-1.3) mg/dL AST 23 (14-36) U/L ALT 26 (4-34) U/L Alkaline Phosphatase 66 (38-126) U/L Troponin I (0.000-0.034) ng/mL Total Protein 7.3 (6.3-8.2) g/dL Albumin 4.2 (3.5-5.0) g/dL Lipase 189 (23-300) U/L 05/03/20 Range/Units 00:02 WBC (3.8-10.6) k/uL RBC (3.80-5.40) m/uL Hgb (11.4-16.0) gm/dL Hct (34.0-46.0) % MCV (80.0-100.0) fL MCH (25.0-35.0) pg MCHC (31.0-37.0) g/dL RDW (11.5-15.5) % Plt Count (150-450) k/uL Neutrophils % % Lymphocytes % % Monocytes % % Eosinophils % % Basophils % % Neutrophils # (1.3-7.7) k/uL Lymphocytes # (1.0-4.8) k/uL Monocytes # (0-1.0) k/uL Eosinophils # (0-0.7) k/uL Basophils # (0-0.2) k/uL PT (9.0-12.0) sec INR (<1.2) APTT (22.0-30.0) sec D-Dimer (<0.60) mg/L FEU Sodium (137-145) mmol/L Potassium (3.5-5.1) mmol/L Chloride (98-107) mmol/L Carbon Dioxide (22-30) mmol/L Anion Gap mmol/L BUN (7-17) mg/dL Creatinine (0.52-1.04) mg/dL Est GFR (CKD-EPI)AfAm (>60 ml/min/1.73 sqM) Est GFR (CKD-EPI)NonAf (>60 ml/min/1.73 sqM) Glucose (74-99) mg/dL Calcium (8.4-10.2) mg/dL Magnesium (1.6-2.3) mg/dL Total Bilirubin (0.2-1.3) mg/dL AST (14-36) U/L ALT (4-34) U/L Alkaline Phosphatase (38-126) U/L Troponin I <0.012 (0.000-0.034) ng/mL Total Protein (6.3-8.2) g/dL Albumin (3.5-5.0) g/dL Lipase (23-300) U/L - EKG Data -: EKG Interpreted by Me (EKG is sinus rhythm 78. 154 QRS 94 QTc 442) - Radiology Data Radiology results: report reviewed (Chest x-rays negative for acute disease), image reviewed Disposition Clinical Impression: Palpitations Disposition: HOME SELF-CARE Condition: Good Instructions (If sedation given, give patient instructions): Heart Palpitations (ED) Is patient prescribed a controlled substance at d/c from ED?: No Referrals: Cale Mary III, MD [Primary Care Provider] - 1-2 days
[2020-05-03 00:30] LABS: Basophils % (A) 0 %; Eosinophils # (A) 0.3 k/uL (0-0.7); Eosinophils % (A) 3 %; HCT 43.6 % (34.0-46.0); HGB 14.6 gm/dL (11.4-16.0); Lymphocytes % (A) 36 %; MCH 30.3 pg (25.0-35.0); MCHC 33.3 g/dL (31.0-37.0); MCV 90.9 fL (80.0-100.0); Mean Platelet Volume 7.7; Monocytes # (A) 0.5 k/uL (0-1.0); Monocytes % (A) 4 %; Neutrophils % (A) 54 %; Platelet Count 278 k/uL (150-450); RDW 13.4 % (11.5-15.5); WBC 11.1 k/uL (3.8-10.6)
[2020-05-03 00:33] LABS: ALT 26 U/L (4-34); AST 23 U/L (14-36); African American GFR (CKD) >90 (>60 ml/min/1.73 sqM); Albumin 4.2 g/dL (3.5-5.0); Alkaline Phosphatase 66 U/L (38-126); Anion Gap 8 mmol/L; Blood Urea Nitrogen 14 mg/dL (7-17); Calcium 9.2 mg/dL (8.4-10.2); Carbon Dioxide 23 mmol/L (22-30); Chloride 109 mmol/L (98-107); Glucose 104 mg/dL (74-99); Non-African American GFR(CKD) >90 (>60 ml/min/1.73 sqM); Sodium 140 mmol/L (137-145); Total Bilirubin 0.6 mg/dL (0.2-1.3); Total Protein 7.3 g/dL (6.3-8.2)
[2020-05-03 00:37] LABS: D-Dimer 0.36 mg/L FEU (<0.60); INR 0.9 (<1.2); Prothrombin Time 9.7 sec (9.0-12.0)
--- NOTE | 2020-05-03 00:48 | XR ---
EXAMINATION TYPE: XR chest 2V DATE OF EXAM: 05/03/2020 COMPARISON: 11/01/2019 HISTORY: Cough TECHNIQUE: 2 views FINDINGS: Heart and mediastinum are normal. Lungs are clear. Diaphragm is normal. Bony thorax appears normal. There are chest leads. IMPRESSION: Normal chest. No change.
[2020-05-03 02:07] VITALS: BP 104/60; PULSE 78; RESP 16; TEMP 98.2
== END 2020-05-03 02:13 | disposition home or self-care (01) ==
LOC: EC 22:57
DX: R00.2 Palpitations (principal); R07.2 Precordial pain; R11.0 Nausea; F41.9 Anxiety disorder, unspecified; F32.9 Major depressive disorder, single episode, unspecified; Z79.899 Other long term (current) drug therapy; Z79.3 Long term (current) use of hormonal contraceptives; Z88.6 Allergy status to analgesic agent; Z91.018 Allergy to other foods
CPT/HCPCS: 36415; 71046; 80053; 83690; 83735; 84484; 85025; 85379; 85610; 85730; 93005; 96360; 99285

== ENCOUNTER → 2020-06-27 | Outpatient (CLI) | payer OTHER ==
--- NOTE | 2020-06-28 10:57 | XR ---
EXAMINATION TYPE: XR chest 2V DATE OF EXAM: 06/27/2020 COMPARISON: Prior chest x-ray 05/03/2020 HISTORY: R07.89 chest pain TECHNIQUE: Frontal and lateral views of the chest are obtained. FINDINGS: There is no focal air space opacity, pleural effusion, or pneumothorax seen. The cardiac silhouette size is within normal limits. The osseous structures are intact, there is a spinal curva ture. IMPRESSION: No acute cardiopulmonary process.
== END | disposition home or self-care (01) ==
LOC: RAD 16:42
PROVIDERS: ATTEND Family Medicine
DX: R07.89 Other chest pain (principal)
CPT/HCPCS: 71046

== ENCOUNTER → 2020-07-25 | Outpatient (CLI) | payer OTHER ==
--- NOTE | 2020-07-26 10:53 | XR ---
EXAMINATION TYPE: XR Hip Complete RT DATE OF EXAM: 07/25/2020 COMPARISON: NONE HISTORY: Pain TECHNIQUE: 2 views submitted FINDINGS: There is no evidence of erosive change or acute fracture. Mild hypertrophic change of the acetabulum. IMPRESSION: 1. Mild hypertrophic change of the acetabulum can occasionally be associated with femoral acetabular impingement. Correlate clinically
== END | disposition home or self-care (01) ==
LOC: RADXRMAIN 16:57
PROVIDERS: ATTEND Family Medicine
DX: M89.351 Hypertrophy of bone, right femur (principal)
CPT/HCPCS: 73502

== ENCOUNTER → 2020-08-01 | Outpatient (CLI) | payer OTHER | END | disposition home or self-care (01) | LOC: LABWHC1 16:58 | PROVIDERS: ATTEND Nurse Practitioner Family | DX: Z20.828 Contact with and (suspected) exposure to other viral communicable diseases (principal) | CPT/HCPCS: U0003; C9803 ==

== ENCOUNTER 2020-09-07 16:36 | Emergency (ER) | payer OTHER ==
[2020-09-07 16:51] VITALS: RESP 16; TEMP 97.6
--- NOTE | 2020-09-07 17:40 | ED ---
Headache HPI - General Chief Complaint: Headache Stated Complaint: Migraine, covid test Time Seen by Provider: 09/07/20 17:38 Mode of arrival: ambulatory Limitations: no limitations - History of Present Illness Initial Comments: Patient is a 29-year-old female with history of anxiety, migraine headaches presenting to the emergency department with chief complaint of migraine colder testing. Patient states 2 days ago she was definitely exposed to someone tested positive for covid. Patient states and now she has developed a migraine headache for the past 2 days been no improvement in symptoms. Patient states she took Excedrin which typically works but not this time. She does report photophobia nausea but no vomiting. States this is like her typical migraine headache. Status was gradual onset and not the worst headache of her life. She is also requesting to be tested for Covid. She is denying any other respiratory symptoms. Patient states that she is taking effect sore for her anxiety but she has not been able to control it after she found out that she was exposed to covid-19 - Related Data Home Medications Medication Instructions Recorded Confirmed ARIPiprazole [Abilify] 15 mg PO HS 05/08/19 07/06/19 Etonogestrel [Nexplanon] 68 mg INTRADERMA CONTINUOUS 06/13/19 07/06/19 Venlafaxine HCl [Effexor XR] 75 mg PO HS 07/06/19 07/06/19 Previous Rx's Medication Instructions Recorded Amoxicillin/Potassium Clav 1 tab PO Q12HR #20 tab 07/06/19 [Augmentin 875-125 Tablet] Albuterol Inhaler (Mhu) [Ventolin 1 - 2 puff INHALATION RT-Q6H PRN 11/01/19 Hfa Inhaler (Mhu)] #1 inhaler methylPREDNISolone [Medrol Dose 4 mg PO DIRECTED #1 pack 11/01/19 Pack] Allergies Allergy/AdvReac Type Severity Reaction Status Date / Time acetaminophen Allergy Rash/Hives Verified 09/07/20 16:51 [From Excedrin Migraine] caffeine Allergy Rash/Hives Verified 09/07/20 16:51 [From Excedrin Migraine] Review of Systems ROS Statement: Those systems with pertinent positive or pertinent negative responses have been documented in the HPI. ROS Other: All systems not noted in ROS Statement are negative. Past Medical History Additional Past Medical History / Comment(s): Herniated L5-S1, Hip Dysplasia, pilonidal cyst 05/2019 migranes History of Any Multi-Drug Resistant Organisms: None Reported Past Surgical History: Adenoidectomy, Tonsillectomy Additional Past Surgical History / Comment(s): I&D 05/2019 Past Anesthesia/Blood Transfusion Reactions: Family History of Problems w/ Anesthesia Additional Past Anesthesia/Blood Transfusion Reaction / Comment(s): Grandfather with nausea, vomiting and migraines after anesthesia. Past Psychological History: Anxiety, Bipolar, Depression Smoking Status: Never smoker Past Alcohol Use History: Occasional Past Drug Use History: None Reported - Past Family History Mother Family Medical History: Thyroid Disorder Father History Unknown: Yes General Exam Limitations: no limitations General appearance: alert, in no apparent distress, anxious, obese Head exam: Present: atraumatic, normocephalic, normal inspection Eye exam: Present: normal appearance, PERRL, EOMI Pupils: Present: normal accommodation ENT exam: Present: normal exam, normal oropharynx, mucous membranes moist, TM's normal bilaterally, normal external ear exam Neck exam: Present: normal inspection, full ROM. Absent: tenderness Respiratory exam: Present: normal lung sounds bilaterally. Absent: respiratory distress, wheezes, rales Cardiovascular Exam: Present: regular rate, normal rhythm, normal heart sounds. Absent: systolic murmur, diastolic murmur GI/Abdominal exam: Present: soft. Absent: distended, tenderness, guarding, rebound Extremities exam: Present: normal inspection, full ROM, normal capillary refill. Absent: tenderness, pedal edema, joint swelling, calf tenderness Back exam: Present: normal inspection, full ROM. Absent: tenderness, CVA tenderness (R), CVA tenderness (L), muscle spasm, paraspinal tenderness Neurological exam: Present: alert, oriented X3, CN II-XII intact, normal gait Psychiatric exam: Present: normal affect, anxious. Absent: depressed, agitated Skin exam: Present: warm, dry, intact, normal color Course Vital Signs 09/07/20 16:48 Temperature 97.6 F Pulse Rate 84 Respiratory 16 Rate Blood Pressure 128/86 O2 Sat by Pulse 100 Oximetry Medical Decision Making - Medical Decision Making 29-year-old female presenting to the emergency department with a chief complaint of migraine and coronavirus testing. On physical examination, patient appears to be slightly anxious. Patient was given 0.25 mg of Xanax. Patient was also treated with Toradol Reglan and Benadryl for her migraine headache. covid-19 testing pending. Patient was advised to stop isolate intake Tylenol if she develops a fever. On reevaluation, patient reports improvement in symptoms. States she is ready had multiple MRIs of her brain with no significant findings. States the migraine headaches are hereditary. Strict return parameters were thoroughly discussed the patient was understanding and agreeable. Case discussed with physician. Disposition Clinical Impression: Migraine Disposition: HOME SELF-CARE Condition: Stable Instructions (If sedation given, give patient instructions): Acute Headache (ED) Additional Instructions: Follow-up with your primary care physician. Return to emergency department if symptoms worsen. Is patient prescribed a controlled substance at d/c from ED?: No Referrals: Cale Mary III, MD [Primary Care Provider] - 1-2 days Time of Disposition: 18:40
[2020-09-07] MEDS ORDERED: KETOROLAC 15 MG/ML 1 ML VIAL IM STA (17:59)
[2020-09-07] MEDS ORDERED: METOCLOPRAMIDE 5 MG/ML 2 ML VIAL IM STA (18:00)
[2020-09-07] MEDS ORDERED: diphenhydrAMINE 50 MG CAP PO STA (18:00)
[2020-09-07] MEDS ORDERED: ALPRAZolam 0.25 MG TAB PO STA (18:00)
[2020-09-07 19:18] VITALS: BP 122/63; PULSE 79
== END 2020-09-07 19:17 | disposition home or self-care (01) ==
LOC: EC 16:36
DX: G43.909 Migraine, unspecified, not intractable, without status migrainosus (principal); Z20.828 Contact with and (suspected) exposure to other viral communicable diseases; F41.9 Anxiety disorder, unspecified; F31.9 Bipolar disorder, unspecified; Z88.6 Allergy status to analgesic agent; Z91.018 Allergy to other foods; Z79.899 Other long term (current) drug therapy; Z79.3 Long term (current) use of hormonal contraceptives
CPT/HCPCS: 96372 ×2; 99283; U0003; J2765; J1885

== ENCOUNTER 2020-09-10 16:47 | Emergency (ER) | payer OTHER ==
[2020-09-10 16:56] VITALS: RESP 18
[2020-09-10] MEDS ORDERED: MORPHINE SULFATE 4 MG/ML SYRINGE IV STA (17:19)
[2020-09-10] MEDS ORDERED: METOCLOPRAMIDE 5 MG/ML 2 ML VIAL IVP STA (17:19)
[2020-09-10] MEDS ORDERED: diphenhydrAMINE 50 MG/ML 1 ML VIAL IVP STA ×2 (17:19→19:01)
--- NOTE | 2020-09-10 18:23 | CT ---
EXAMINATION TYPE: CT brain wo con DATE OF EXAM: 09/10/2020 COMPARISON: 10/24/2009 HISTORY: Headache, ocular migraine. CT DLP: 1135.4 mGycm Automated exposure control for dose reduction was used. Exam performed without contrast. Ventricles and sulci appear normal. There is no mass effect nor midline shift. There is no sign of in tracranial hemorrhage. The calvarium is intact. There is no evidence of cerebral edema. Skull base is intact. Sella turcica is normal. IMPRESSION: Normal unenhanced head CT scan.
[2020-09-10] MEDS ORDERED: KETOROLAC 15 MG/ML 1 ML VIAL IVP STA (18:26)
[2020-09-10] MEDS ORDERED: SODIUM CHLORIDE 0.9% 500 ML 500 ML IV ONE ×2 (18:26→19:01)
--- NOTE | 2020-09-10 18:46 | ED ---
General Adult HPI - General Source: patient, RN notes reviewed, old records reviewed Mode of arrival: ambulatory Limitations: no limitations <Thomas Alcantara - Last Filed: 09/10/20 19:05> <Werner Oliver - Last Filed: 09/10/20 19:48> - General Chief complaint: Headache Stated complaint: Migrane Time Seen by Provider: 09/10/20 17:01 - History of Present Illness Initial comments: 29-year-old female patient to ED for evaluation of migraine headache. Patient was that she has had a waxing and waning migraine headache for the last 3 days. She reports that is primarily behind her left eye. She has some waxing and waning blurred vision. Reports nausea without emesis. Denies any chance of or any red flag symptoms. Systemic: Pt denies fatigue, fever/chills, rash. Pt denies weakness, night sweats, weight loss. Neuro: Pt denies syncope or pre-syncope. HEENT: Pt denies ocular discharge or irritation, otalgia, rhinorrhea, pharyngitis or notable lymphadenopathy. Cardiopulmonary: Pt denies chest pain, SOB, heart palpitations, dyspnea on exertion. Abdominal/GI: Pt denies abdominal pain, n/v/d. : Pt denies dysuria, burning w/ urination, frequency/urgency. Denies new onset urinary or bowel incontinence. MSK: Pt denies myalgia, loss of strength or function in extremities. Neuro: Pt denies new onset weakness, paresthesias. (Thomas Alcantara) - Related Data Home Medications Medication Instructions Recorded Confirmed ARIPiprazole [Abilify] 15 mg PO HS 05/08/19 09/10/20 Venlafaxine HCl [Effexor XR] 75 mg PO HS 07/06/19 09/10/20 Cyclobenzaprine [Flexeril] 10 mg PO HS 09/10/20 09/10/20 LORazepam [Ativan] 0.5 mg PO BID PRN 09/10/20 09/10/20 Allergies Allergy/AdvReac Type Severity Reaction Status Date / Time acetaminophen Allergy Rash/Hives Verified 09/10/20 17:53 [From Excedrin Migraine] caffeine Allergy Rash/Hives Verified 09/10/20 17:53 [From Excedrin Migraine] Review of Systems ROS Other: All systems not noted in ROS Statement are negative. <Thomas Alcantara - Last Filed: 09/10/20 19:05> ROS Other: All systems not noted in ROS Statement are negative. <OliverWerner - Last Filed: 09/10/20 19:48> ROS Statement: Those systems with pertinent positive or pertinent negative responses have been documented in the HPI. Past Medical History Additional Past Medical History / Comment(s): Herniated L5-S1, Hip Dysplasia, pilonidal cyst 05/2019 migranes History of Any Multi-Drug Resistant Organisms: None Reported Past Surgical History: Adenoidectomy, Tonsillectomy Additional Past Surgical History / Comment(s): I&D 05/2019 Past Anesthesia/Blood Transfusion Reactions: Family History of Problems w/ Anesthesia Additional Past Anesthesia/Blood Transfusion Reaction / Comment(s): Grandfather with nausea, vomiting and migraines after anesthesia. Past Psychological History: Anxiety, Bipolar, Depression Smoking Status: Never smoker Past Alcohol Use History: Occasional Past Drug Use History: None Reported - Past Family History Mother Family Medical History: Thyroid Disorder Father History Unknown: Yes <Thomas Alcantara - Last Filed: 09/10/20 19:05> General Exam Limitations: no limitations <Thomas Alcantara - Last Filed: 09/10/20 19:05> - General Exam Comments Initial Comments: Constitutional: NAD, AOX3, Pt has pleasant affect. HEENT: NC/AT, trachea midline, neck supple, no lymphadenopathy. Posterior pharynx non erythematous, without exudates. External ears appear normal, without discharge. Mucous membranes moist. Eyes PERRLA, EOM intact. There is no scleral icterus. No pallor noted. Cardiopulmonary: RRR, no murmurs, rubs or gallops, no JVD noted. Lungs CTAB in anterior and posterior zapine. No peripheral edema. Abdominal exam: Abdomen soft and non-distended. Abdomen non-tender to palpation in all 4 quadrants. Bowel sounds active in LLQ. No hepatosplenomegaly. No ecchymosis Neuro: CN II-XII intact. No nuchal rigidity. No raccon eyes, no fletcher sign, no hemotympanum. No cervical spinal tenderness. MSK: Full active ROM in upper and lower extremities, 5/5 stregnth. (Thomas Alcantara) Course Vital Signs 09/10/20 09/10/20 09/10/20 16:53 17:55 18:00 Temperature 98.6 F Pulse Rate 95 89 Respiratory 18 18 18 Rate Blood Pressure 125/83 136/73 O2 Sat by Pulse 99 100 Oximetry 09/10/20 19:00 Temperature Pulse Rate 88 Respiratory 18 Rate Blood Pressure 119/69 O2 Sat by Pulse 100 Oximetry Medical Decision Making <Thomas Alcantara - Last Filed: 09/10/20 19:05> - Radiology Data Radiology results: report reviewed (Computed tomography scan of the brain reveals no acute process) <Werner Oliver - Last Filed: 09/10/20 19:48> - Medical Decision Making 29 year old female patient to ED for headache behind left eye, waxing and waning the last 3 days. Physical exam negative for acute pathology. Patient had some improvement with headache cocktail. CT brain without contrast negative for acute pathology. Patient signed out to Dr. Oliver pending repeat evaluation. (Thomas Alcantara) Patient reevaluated and feeling much better, symptoms resolved. Patient is resting discharge home. Patient updated on results and need for follow-up. (Werner Oliver) Disposition <Thomas Alcantara - Last Filed: 09/10/20 19:05> Is patient prescribed a controlled substance at d/c from ED?: No Time of Disposition: 19:48 <Werner Oliver - Last Filed: 09/10/20 19:48> Clinical Impression: Cephalgia Disposition: HOME SELF-CARE Condition: Stable Instructions (If sedation given, give patient instructions): Acute Headache (ED) Additional Instructions: Please follow-up with primary care physician in the next day or 2 for recheck. Return for increased pain, weakness, fever, worsening or changing symptoms or other concerns. Referrals: Cale Mary III, MD [Primary Care Provider] - 1-2 days
[2020-09-10] MEDS ORDERED: HYDROmorphone 0.5 MG/0.5 ML SYRINGE IVP STA (19:01)
[2020-09-10 19:56] VITALS: BP 124/66; PULSE 100; TEMP 98.3
== END 2020-09-10 19:56 | disposition home or self-care (01) ==
LOC: EC 16:47
DX: R51.9 Headache, unspecified (principal); R11.0 Nausea; F41.9 Anxiety disorder, unspecified; F31.9 Bipolar disorder, unspecified; Z79.899 Other long term (current) drug therapy; Z88.6 Allergy status to analgesic agent; Z91.048 Other nonmedicinal substance allergy status
CPT/HCPCS: 70450; 99284; 96374; 96375 ×4; 96376; 96361; J2270; J1200; J2765; J1885; J1170

== ENCOUNTER 2020-10-22 18:40 | Emergency (ER) | payer OTHER ==
[2020-10-22 18:52] VITALS: RESP 16; TEMP 98.7
[2020-10-22] MEDS ORDERED: DEXAMETHASONE SOD PHOSPHATE 10 MG/ML 1 ML VIAL IV STA (19:18)
[2020-10-22] MEDS ORDERED: METOCLOPRAMIDE 5 MG/ML 2 ML VIAL IVP STA (19:18)
[2020-10-22] MEDS ORDERED: SODIUM CHLORIDE 0.9% 1,000 ML IV ONE (19:18)
[2020-10-22] MEDS ORDERED: KETOROLAC 15 MG/ML 1 ML VIAL IVP STA (19:18)
[2020-10-22] MEDS ORDERED: diphenhydrAMINE 50 MG/ML 1 ML VIAL IVP STA (19:18)
--- NOTE | 2020-10-22 19:32 | ED ---
Headache HPI - General Mode of arrival: ambulatory Limitations: no limitations <Elaine Pena - Last Filed: 10/22/20 21:36> <Jimena Marquez - Last Filed: 10/23/20 22:28> - General Chief Complaint: Headache Stated Complaint: Migrane Time Seen by Provider: 10/22/20 19:02 - History of Present Illness Initial Comments: 30-year-old female patient presents to the emergency department today for evaluation of migraine headache. States that she has had a headache since around lunch time and has been progressively worsening. States that she did attempt to take 1000 mg of Tylenol around 5 PM but it doesn't seem to be helping. She did have one episode of vomiting today. Denies any blurred or double vision. Denies dizziness or weakness. Denies any numbness, tingling, weakness to the extremities. States she does have a history of migraines and her symptoms are consistent with her usual migraine pattern. Patient denies any recent rash, fever, chills, cough, shortness of breath, chest pain, abdominal pain, diarrhea, constipation, back pain, hematuria, dysuria, urinary urgency, urinary frequency, or any other complaints. (Elaine Pena) - Related Data Home Medications Medication Instructions Recorded Confirmed ARIPiprazole [Abilify] 15 mg PO HS 05/08/19 10/22/20 Venlafaxine HCl [Effexor XR] 75 mg PO HS 07/06/19 10/22/20 Cyclobenzaprine [Flexeril] 10 mg PO HS PRN 09/10/20 10/22/20 Allergies Allergy/AdvReac Type Severity Reaction Status Date / Time acetaminophen Allergy Rash/Hives Verified 10/22/20 20:21 [From Excedrin Migraine] caffeine Allergy Rash/Hives Verified 10/22/20 20:21 [From Excedrin Migraine] Review of Systems ROS Other: All systems not noted in ROS Statement are negative. <Elaine Pena - Last Filed: 10/22/20 21:36> ROS Other: All systems not noted in ROS Statement are negative. <Jimena Marquez - Last Filed: 10/23/20 22:28> ROS Statement: Those systems with pertinent positive or pertinent negative responses have been documented in the HPI. Past Medical History Additional Past Medical History / Comment(s): Herniated L5-S1, Hip Dysplasia, pilonidal cyst 05/2019 migranes History of Any Multi-Drug Resistant Organisms: None Reported Past Surgical History: Adenoidectomy, Tonsillectomy Additional Past Surgical History / Comment(s): I&D 05/2019 Past Anesthesia/Blood Transfusion Reactions: Family History of Problems w/ Anesthesia Additional Past Anesthesia/Blood Transfusion Reaction / Comment(s): Grandfather with nausea, vomiting and migraines after anesthesia. Past Psychological History: Anxiety, Bipolar, Depression Smoking Status: Never smoker Past Alcohol Use History: Occasional Past Drug Use History: None Reported - Past Family History Mother Family Medical History: Thyroid Disorder Father History Unknown: Yes <Elaine Pena - Last Filed: 10/22/20 21:36> General Exam Limitations: no limitations General appearance: alert, in no apparent distress, other (Physical well- developed, well-nourished adult female patient in no acute distress. Vital signs upon presentation are temperature 98.7F, pulse 93, respirations 16, blood pressure 135/93, pulse ox 100% on room air.) Eye exam: Present: normal appearance, PERRL, EOMI. Absent: scleral icterus, conjunctival injection, nystagmus, periorbital swelling ENT exam: Present: normal exam, mucous membranes moist Respiratory exam: Present: normal lung sounds bilaterally. Absent: respiratory distress, wheezes, rales, rhonchi, stridor Cardiovascular Exam: Present: regular rate, normal rhythm, normal heart sounds. Absent: systolic murmur, diastolic murmur, rubs, gallop, clicks GI/Abdominal exam: Present: soft, normal bowel sounds. Absent: distended, tenderness, guarding, rebound, rigid Neurological exam: Present: alert, oriented X3, CN II-XII intact, other (Strength in all 4 extremities is 5/5) Psychiatric exam: Present: normal affect, normal mood Skin exam: Present: warm, dry, intact, normal color. Absent: rash <Elaine Pena - Last Filed: 10/22/20 21:36> Course Vital Signs 10/22/20 10/22/20 18:45 20:56 Temperature 98.7 F 98.7 F Pulse Rate 93 68 Respiratory 16 16 Rate Blood Pressure 135/93 124/74 O2 Sat by Pulse 100 99 Oximetry Medical Decision Making <Elaine Pena - Last Filed: 10/22/20 21:36> <Jimena Marquez - Last Filed: 10/23/20 22:28> - Medical Decision Making 30-year-old female patient presents to the emergency department today reporting migraine headache. Physical examination is unremarkable. She is neurologically intact with no focal deficits. Does have a history of migraines. Nurses were unable to obtain IV access we did give her IM injections. Upon reevaluation she is resting comfortably in bed. She is requesting to be discharged home to get some sleep. She'll be discharged. The primary care physician and possibly neurology for further evaluation as soon as possible. Return parameters were discussed in detail. She verbalizes understanding and agrees with this plan. (Elaine Pena) I was available for consultation in the emergency department. The history and physical exam were done by the midlevel provider. I was consulted for this patients care. I reviewed the case with the midlevel provider and based on their presentation of the patient, I agree with the assessment, medical decision making and plan of care as documented. Chart was dictated using [employer] dictation software. Attempts were made to correct any dictation errors however some typographical errors may persist. Patient was seen during a national state of emergency due to the Covid-19 pandemic. (Jimena Marquez) Disposition Is patient prescribed a controlled substance at d/c from ED?: No Time of Disposition: 20:55 <Elaine Pena - Last Filed: 10/22/20 21:36> <Jimena Marquez - Last Filed: 10/23/20 22:28> Clinical Impression: Migraine headache Disposition: HOME SELF-CARE Condition: Good Instructions (If sedation given, give patient instructions): Migraine Headache (ED) Additional Instructions: Increase fluids. Rest. Follow-up with your primary care physician for recheck in 1-2 days. If your headaches seem to increase in frequency follow-up with neurology. Return to the emergency department for any new, worsening, or concerning symptoms. Referrals: Cale Mary III, MD [Primary Care Provider] - 1-2 days
[2020-10-22] MEDS ORDERED: METOCLOPRAMIDE 5 MG/ML 2 ML VIAL IM PRN (19:50)
[2020-10-22] MEDS ORDERED: DEXAMETHASONE SOD PHOSPHATE 10 MG/ML 1 ML VIAL IM STA (19:51)
[2020-10-22] MEDS ORDERED: KETOROLAC 15 MG/ML 1 ML VIAL IM STA (19:52)
[2020-10-22] MEDS ORDERED: ONDANSETRON 4 MG/2 ML VIAL IM STA (19:52)
[2020-10-22] MEDS ORDERED: METOCLOPRAMIDE 5 MG/ML 2 ML VIAL IM STA (19:57)
[2020-10-22] MEDS ORDERED: diphenhydrAMINE 50 MG/ML 1 ML VIAL IM STA (20:01)
[2020-10-22 20:57] VITALS: BP 124/74; PULSE 68
== END 2020-10-22 20:59 | disposition home or self-care (01) ==
LOC: EC 18:40
DX: G43.909 Migraine, unspecified, not intractable, without status migrainosus (principal); F41.9 Anxiety disorder, unspecified; F31.9 Bipolar disorder, unspecified; Z79.899 Other long term (current) drug therapy; Z88.6 Allergy status to analgesic agent; Z91.048 Other nonmedicinal substance allergy status
CPT/HCPCS: 99283; 96372 ×3; J1200; J1100; J2765; J1885

== ENCOUNTER 2020-11-30 17:39 | Emergency (ER) | payer OTHER ==
[2020-11-30 17:53] VITALS: TEMP 98.6
[2020-11-30] MEDS ORDERED: FUROSEMIDE 10 MG/ML 4 ML VIAL IV STA (18:32)
[2020-11-30 19:07] LABS: Basophils # (A) 0.1 k/uL (0-0.2); Basophils % (A) 1 %; Eosinophils # (A) 0.2 k/uL (0-0.7); Eosinophils % (A) 2 %; HCT 44.1 % (34.0-46.0); HGB 14.6 gm/dL (11.4-16.0); Lymphocytes # (A) 3.9 k/uL (1.0-4.8); Lymphocytes % (A) 37 %; MCH 29.4 pg (25.0-35.0); Mean Platelet Volume 7.3; Monocytes # (A) 0.6 k/uL (0-1.0); Monocytes % (A) 6 %; Neutrophils # (A) 5.6 k/uL (1.3-7.7); Neutrophils % (A) 53 %; Platelet Count 255 k/uL (150-450); RBC 4.96 m/uL (3.80-5.40); RDW 13.9 % (11.5-15.5); WBC 10.6 k/uL (3.8-10.6)
--- NOTE | 2020-11-30 19:14 | ED ---
Extremity Problem HPI - General Chief complaint: Extremity Problem,Nontraumatic Stated complaint: Swelling, SOB Time Seen by Provider: 11/30/20 18:22 Source: patient, RN notes reviewed Mode of arrival: ambulatory Limitations: no limitations - History of Present Illness Initial comments: Patient is a 30-year-old female presents to emergency department complaining of bilateral lower extremities swelling and shortness of breath. She noted struck on her primary care who then sent her here all point due to being audibly short of breath on the phone. Patient was in no apparent distress or pain. She noted that she only recently changed her diet back to [employer] but that is the only change that she's had. She was in no pain or discomfort. She denied any chest pain headache nausea vomiting diarrhea constipation fever fatigue chills. - Related Data Home Medications Medication Instructions Recorded Confirmed ARIPiprazole [Abilify] 15 mg PO HS 05/08/19 11/30/20 Venlafaxine HCl [Effexor XR] 75 mg PO HS 07/06/19 11/30/20 Cyclobenzaprine [Flexeril] 10 mg PO HS PRN 09/10/20 11/30/20 Previous Rx's Medication Instructions Recorded Furosemide [Lasix] 20 mg PO BID 5 Days #10 tablet 11/30/20 Potassium Chloride 20 meq PO DAILY 5 Days #5 ml 11/30/20 Allergies Allergy/AdvReac Type Severity Reaction Status Date / Time acetaminophen Allergy Rash/Hives Verified 11/30/20 18:38 [From Excedrin Migraine] caffeine Allergy Rash/Hives Verified 11/30/20 18:38 [From Excedrin Migraine] Review of Systems ROS Statement: Those systems with pertinent positive or pertinent negative responses have been documented in the HPI. ROS Other: All systems not noted in ROS Statement are negative. Past Medical History Additional Past Medical History / Comment(s): Herniated L5-S1, Hip Dysplasia, pilonidal cyst 05/2019 migranes History of Any Multi-Drug Resistant Organisms: None Reported Past Surgical History: Adenoidectomy, Tonsillectomy Additional Past Surgical History / Comment(s): I&D 05/2019 Past Anesthesia/Blood Transfusion Reactions: Family History of Problems w/ Anesthesia Additional Past Anesthesia/Blood Transfusion Reaction / Comment(s): Grandfather with nausea, vomiting and migraines after anesthesia. Past Psychological History: Anxiety, Bipolar, Depression Smoking Status: Never smoker Past Alcohol Use History: Occasional Past Drug Use History: None Reported - Past Family History Mother Family Medical History: Thyroid Disorder Father History Unknown: Yes General Exam Limitations: no limitations General appearance: alert, in no apparent distress, obese Head exam: Present: atraumatic, normocephalic, normal inspection Eye exam: Present: normal appearance, PERRL, EOMI. Absent: scleral icterus, conjunctival injection, periorbital swelling ENT exam: Present: normal exam, mucous membranes moist Neck exam: Present: normal inspection. Absent: tenderness, meningismus, lymphadenopathy Respiratory exam: Present: decreased breath sounds (Bilateral lower lobes). Absent: respiratory distress, wheezes, rales, rhonchi, stridor Cardiovascular Exam: Present: regular rate, normal rhythm, normal heart sounds. Absent: systolic murmur, diastolic murmur, rubs, gallop, clicks GI/Abdominal exam: Present: soft, normal bowel sounds. Absent: distended, tenderness, guarding, rebound, rigid Extremities exam: Present: normal inspection, full ROM, normal capillary refill, other (2+ edema of bilateral lower extremities from the knee down.). Absent: tenderness, pedal edema, joint swelling, calf tenderness Back exam: Present: normal inspection Neurological exam: Present: alert, oriented X3, CN II-XII intact Psychiatric exam: Present: normal affect, normal mood Skin exam: Present: warm, dry, intact, normal color. Absent: rash Course Vital Signs 11/30/20 17:50 Temperature 98.6 F Pulse Rate 94 Respiratory 20 Rate Blood Pressure 167/108 O2 Sat by Pulse 98 Oximetry Medical Decision Making - Medical Decision Making 30-year-old female complaining of bilateral lower swelling and shortness of breath. Labs, chest x-ray, 40 mg of Lasix IV ordered. Labs unremarkable Case discussed with Dr. Carter, was decided the patient could discharge home with conservative management and follow-up primary care. - Lab Data Result diagrams: 11/30/20 18:57 11/30/20 18:57 Lab Results 11/30/20 11/30/20 11/30/20 Range/Units 18:57 18:57 18:57 WBC 10.6 (3.8-10.6) k/uL RBC 4.96 (3.80-5.40) m/uL Hgb 14.6 (11.4-16.0) gm/dL Hct 44.1 (34.0-46.0) % MCV 89.0 (80.0-100.0) fL MCH 29.4 (25.0-35.0) pg MCHC 33.0 (31.0-37.0) g/dL RDW 13.9 (11.5-15.5) % Plt Count 255 (150-450) k/uL MPV 7.3 Neutrophils % 53 % Lymphocytes % 37 % Monocytes % 6 % Eosinophils % 2 % Basophils % 1 % Neutrophils # 5.6 (1.3-7.7) k/uL Lymphocytes # 3.9 (1.0-4.8) k/uL Monocytes # 0.6 (0-1.0) k/uL Eosinophils # 0.2 (0-0.7) k/uL Basophils # 0.1 (0-0.2) k/uL PT 9.5 (9.0-12.0) sec INR 0.9 (<1.2) APTT 24.0 (22.0-30.0) sec D-Dimer 0.41 (<0.60) mg/L FEU Sodium 139 (137-145) mmol/L Potassium 4.1 (3.5-5.1) mmol/L Chloride 105 (98-107) mmol/L Carbon Dioxide 27 (22-30) mmol/L Anion Gap 7 mmol/L BUN 13 (7-17) mg/dL Creatinine 0.76 (0.52-1.04) mg/dL Est GFR (CKD-EPI)AfAm >90 (>60 ml/min/1.73 sqM) Est GFR (CKD-EPI)NonAf >90 (>60 ml/min/1.73 sqM) Glucose 68 L (74-99) mg/dL Plasma Lactic Acid Slick (0.7-2.0) mmol/L Calcium 8.5 (8.4-10.2) mg/dL Total Bilirubin 0.5 (0.2-1.3) mg/dL AST 29 (14-36) U/L ALT 41 H (4-34) U/L Alkaline Phosphatase 47 (38-126) U/L Troponin I (0.000-0.034) ng/mL NT-Pro-B Natriuret Pep pg/mL Total Protein 6.1 L (6.3-8.2) g/dL Albumin 3.5 (3.5-5.0) g/dL Urine Color Urine Appearance (Clear) Urine pH (5.0-8.0) Ur Specific [place] (1.001-1.035) Urine Protein (Negative) Urine Glucose (UA) (Negative) Urine Ketones (Negative) Urine Blood (Negative) Urine Nitrite (Negative) Urine Bilirubin (Negative) Urine Urobilinogen (<2.0) mg/dL Ur Leukocyte Esterase (Negative) Urine RBC (0-5) /hpf Urine WBC (0-5) /hpf Ur Squamous Epith Cells (0-4) /hpf Urine Bacteria (None) /hpf Urine HCG, Qual (Not Detectd) 11/30/20 11/30/20 11/30/20 Range/Units 18:57 18:57 18:57 WBC (3.8-10.6) k/uL RBC (3.80-5.40) m/uL Hgb (11.4-16.0) gm/dL Hct (34.0-46.0) % MCV (80.0-100.0) fL MCH (25.0-35.0) pg MCHC (31.0-37.0) g/dL RDW (11.5-15.5) % Plt Count (150-450) k/uL MPV Neutrophils % % Lymphocytes % % Monocytes % % Eosinophils % % Basophils % % Neutrophils # (1.3-7.7) k/uL Lymphocytes # (1.0-4.8) k/uL Monocytes # (0-1.0) k/uL Eosinophils # (0-0.7) k/uL Basophils # (0-0.2) k/uL PT (9.0-12.0) sec INR (<1.2) APTT (22.0-30.0) sec D-Dimer (<0.60) mg/L FEU Sodium (137-145) mmol/L Potassium (3.5-5.1) mmol/L Chloride (98-107) mmol/L Carbon Dioxide (22-30) mmol/L Anion Gap mmol/L BUN (7-17) mg/dL Creatinine (0.52-1.04) mg/dL Est GFR (CKD-EPI)AfAm (>60 ml/min/1.73 sqM) Est GFR (CKD-EPI)NonAf (>60 ml/min/1.73 sqM) Glucose (74-99) mg/dL Plasma Lactic Acid Slick 0.9 (0.7-2.0) mmol/L Calcium (8.4-10.2) mg/dL Total Bilirubin (0.2-1.3) mg/dL AST (14-36) U/L ALT (4-34) U/L Alkaline Phosphatase (38-126) U/L Troponin I <0.012 (0.000-0.034) ng/mL NT-Pro-B Natriuret Pep 37 pg/mL Total Protein (6.3-8.2) g/dL Albumin (3.5-5.0) g/dL Urine Color Urine Appearance (Clear) Urine pH (5.0-8.0) Ur Specific [place] (1.001-1.035) Urine Protein (Negative) Urine Glucose (UA) (Negative) Urine Ketones (Negative) Urine Blood (Negative) Urine Nitrite (Negative) Urine Bilirubin (Negative) Urine Urobilinogen (<2.0) mg/dL Ur Leukocyte Esterase (Negative) Urine RBC (0-5) /hpf Urine WBC (0-5) /hpf Ur Squamous Epith Cells (0-4) /hpf Urine Bacteria (None) /hpf Urine HCG, Qual (Not Detectd) 11/30/20 11/30/20 Range/Units 19:11 19:11 WBC (3.8-10.6) k/uL RBC (3.80-5.40) m/uL Hgb (11.4-16.0) gm/dL Hct (34.0-46.0) % MCV (80.0-100.0) fL MCH (25.0-35.0) pg MCHC (31.0-37.0) g/dL RDW (11.5-15.5) % Plt Count (150-450) k/uL MPV Neutrophils % % Lymphocytes % % Monocytes % % Eosinophils % % Basophils % % Neutrophils # (1.3-7.7) k/uL Lymphocytes # (1.0-4.8) k/uL Monocytes # (0-1.0) k/uL Eosinophils # (0-0.7) k/uL Basophils # (0-0.2) k/uL PT (9.0-12.0) sec INR (<1.2) APTT (22.0-30.0) sec D-Dimer (<0.60) mg/L FEU Sodium (137-145) mmol/L Potassium (3.5-5.1) mmol/L Chloride (98-107) mmol/L Carbon Dioxide (22-30) mmol/L Anion Gap mmol/L BUN (7-17) mg/dL Creatinine (0.52-1.04) mg/dL Est GFR (CKD-EPI)AfAm (>60 ml/min/1.73 sqM) Est GFR (CKD-EPI)NonAf (>60 ml/min/1.73 sqM) Glucose (74-99) mg/dL Plasma Lactic Acid Slick (0.7-2.0) mmol/L Calcium (8.4-10.2) mg/dL Total Bilirubin (0.2-1.3) mg/dL AST (14-36) U/L ALT (4-34) U/L Alkaline Phosphatase (38-126) U/L Troponin I (0.000-0.034) ng/mL NT-Pro-B Natriuret Pep pg/mL Total Protein (6.3-8.2) g/dL Albumin (3.5-5.0) g/dL Urine Color Yellow Urine Appearance Clear (Clear) Urine pH 6.5 (5.0-8.0) Ur Specific [place] 1.017 (1.001-1.035) Urine Protein Negative (Negative) Urine Glucose (UA) Negative (Negative) Urine Ketones Negative (Negative) Urine Blood Negative (Negative) Urine Nitrite Negative (Negative) Urine Bilirubin Negative (Negative) Urine Urobilinogen <2.0 (<2.0) mg/dL Ur Leukocyte Esterase Trace H (Negative) Urine RBC 3 (0-5) /hpf Urine WBC 4 (0-5) /hpf Ur Squamous Epith Cells 3 (0-4) /hpf Urine Bacteria Rare H (None) /hpf Urine HCG, Qual Not Detected (Not Detectd) - EKG Data -: EKG Interpreted by Nc EKG shows normal: sinus rhythm Rate: normal EKG Comments: Ventricular 100 bpm, OR interval 120 ms, QRS duration isozymes, QT/QTC. She states that for suturing as it is, PareT axes 61/53/27. Normal sinus rhythm normal EKG. - Radiology Data Radiology results: report reviewed, image reviewed Chest x-ray: No acute cardiopulmonary process. Disposition Clinical Impression: Localized swelling of both lower legs Disposition: HOME SELF-CARE Condition: Stable Instructions (If sedation given, give patient instructions): Leg Edema (ED) Additional Instructions: Please return to the Emergency Department if symptoms worsen or any other concerns. Follow-up primary care 1-2 days. Take medications as prescribed. Elevate legs. Is patient prescribed a controlled substance at d/c from ED?: No Referrals: Cale Mary III, MD [Primary Care Provider] - 1-2 days Time of Disposition: 20:37
[2020-11-30 19:19] LABS: ALT 41 U/L (4-34); AST 29 U/L (14-36); African American GFR (CKD) >90 (>60 ml/min/1.73 sqM); Albumin 3.5 g/dL (3.5-5.0); Alkaline Phosphatase 47 U/L (38-126); Anion Gap 7 mmol/L; Blood Urea Nitrogen 13 mg/dL (7-17); Calcium 8.5 mg/dL (8.4-10.2); Carbon Dioxide 27 mmol/L (22-30); Chloride 105 mmol/L (98-107); Glucose 68 mg/dL (74-99); Non-African American GFR(CKD) >90 (>60 ml/min/1.73 sqM); Potassium 4.1 mmol/L (3.5-5.1); Sodium 139 mmol/L (137-145); Total Bilirubin 0.5 mg/dL (0.2-1.3); Total Protein 6.1 g/dL (6.3-8.2)
[2020-11-30 19:20] LABS: Appearance,Urine Clear (Clear); Bacteria,Urine Rare /hpf; Bilirubin,Urine Negative (Negative); Blood,Urine Negative (Negative); Color,Urine Yellow; Glucose,Urine (UA) Negative (Negative); Ketones,Urine Negative (Negative); Leukocyte Esterase,Urine Trace (Negative); Nitrite,Urine Negative (Negative); PH, Urine 6.5 (5.0-8.0); Protein,Urine Negative (Negative); RBC,Urine 3 /hpf (0-5); Specific Gravity,Urine 1.017 (1.001-1.035); Squamous Epithelial Cell,Urine 3 /hpf (0-4); Urobilinogen,Urine <2.0 mg/dL (<2.0); WBC,Urine 4 /hpf (0-5)
[2020-11-30 19:28] LABS: D-Dimer 0.41 mg/L FEU (<0.60); INR 0.9 (<1.2); Prothrombin Time 9.5 sec (9.0-12.0)
--- NOTE | 2020-11-30 19:59 | XR ---
EXAMINATION TYPE: XR chest 2V DATE OF EXAM: 11/30/2020 COMPARISON: 06/27/2020. HISTORY: Shortness of breath. TECHNIQUE: Frontal and lateral views of the chest are obtained. FINDINGS: There is no focal air space opacity, pleural effusion, or pneumothorax seen. The cardiac silhouette size is within normal limits. The osseous structures are intact. IMPRESSION: No acute cardiopulmonary process.
[2020-11-30 20:44] VITALS: BP 124/87; PULSE 76; RESP 16
== END 2020-11-30 21:02 | disposition home or self-care (01) ==
LOC: EC 17:39
DX: R22.43 Localized swelling, mass and lump, lower limb, bilateral (principal); R06.02 Shortness of breath; F41.9 Anxiety disorder, unspecified; F31.9 Bipolar disorder, unspecified; Z79.899 Other long term (current) drug therapy; Z88.6 Allergy status to analgesic agent; Z91.018 Allergy to other foods
CPT/HCPCS: 36415; 93005; 85379; 83880; 80053; 84443; 83605; 84484; 85025; 85610; 85730; 81001; 81025; 71046; 96374; 99285; J1940

== ENCOUNTER 2020-12-07 19:46 | Emergency (ER) | payer OTHER ==
[2020-12-07] MEDS ORDERED: FUROSEMIDE 10 MG/ML 4 ML VIAL IV STA (20:30)
--- NOTE | 2020-12-07 20:58 | ED ---
General Adult HPI - General Chief complaint: Shortness of Breath Stated complaint: Lower extremity swelling Time Seen by Provider: 12/07/20 20:09 Source: patient, RN notes reviewed Mode of arrival: ambulatory Limitations: no limitations - History of Present Illness Initial comments: 30-year-old female presents emergency Department chief complaint lower leg swelling. Patient states that she's been having symptoms of last week or 2. Patient states that she was seen here her workup which was negative. Patient scheduled for an echocardiogram. She has no chest symptoms at this time. Patient states her legs are achy is a swelling. Patient doesn't at this happen in the past. She did admit she took a dose of Lasix which significantly helped her symptoms. No history of cardiac disease. Patient offers no complaints no dietary changes. - Related Data Home Medications Medication Instructions Recorded Confirmed ARIPiprazole [Abilify] 15 mg PO HS 05/08/19 11/30/20 Venlafaxine HCl [Effexor XR] 75 mg PO HS 07/06/19 11/30/20 Cyclobenzaprine [Flexeril] 10 mg PO HS PRN 09/10/20 11/30/20 Previous Rx's Medication Instructions Recorded Furosemide [Lasix] 20 mg PO BID 5 Days #10 tablet 11/30/20 Potassium Chloride 20 meq PO DAILY 5 Days #5 ml 11/30/20 Allergies Allergy/AdvReac Type Severity Reaction Status Date / Time acetaminophen Allergy Rash/Hives Verified 12/07/20 22:30 [From Excedrin Migraine] caffeine Allergy Rash/Hives Verified 12/07/20 22:30 [From Excedrin Migraine] Review of Systems ROS Statement: Those systems with pertinent positive or pertinent negative responses have been documented in the HPI. ROS Other: All systems not noted in ROS Statement are negative. Past Medical History Additional Past Medical History / Comment(s): Herniated L5-S1, Hip Dysplasia, pilonidal cyst 05/2019 migranes History of Any Multi-Drug Resistant Organisms: None Reported Past Surgical History: Adenoidectomy, Tonsillectomy Additional Past Surgical History / Comment(s): I&D 05/2019 Past Anesthesia/Blood Transfusion Reactions: Family History of Problems w/ Anesthesia Additional Past Anesthesia/Blood Transfusion Reaction / Comment(s): Grandfather with nausea, vomiting and migraines after anesthesia. Past Psychological History: Anxiety, Bipolar, Depression Smoking Status: Never smoker Past Alcohol Use History: Occasional Past Drug Use History: None Reported - Past Family History Mother Family Medical History: Thyroid Disorder Father History Unknown: Yes General Exam Limitations: no limitations General appearance: alert, in no apparent distress Head exam: Present: atraumatic, normocephalic, normal inspection Eye exam: Present: normal appearance, PERRL, EOMI. Absent: scleral icterus, conjunctival injection, periorbital swelling ENT exam: Present: normal exam, normal oropharynx, mucous membranes moist Neck exam: Present: normal inspection, full ROM. Absent: tenderness, meningismus, lymphadenopathy Respiratory exam: Present: normal lung sounds bilaterally. Absent: respiratory distress, wheezes, rales, rhonchi, stridor Cardiovascular Exam: Present: regular rate, normal rhythm, normal heart sounds. Absent: systolic murmur, diastolic murmur, rubs, gallop, clicks Extremities exam: Present: normal capillary refill, pedal edema. Absent: calf tenderness Neurological exam: Present: alert, oriented X3 Skin exam: Present: warm, dry, intact, normal color. Absent: rash Course Vital Signs 12/07/20 12/07/20 20:04 20:20 Temperature 98.5 F Pulse Rate 96 Pulse Rate [ 96 [employer] ] Respiratory 22 20 Rate Blood Pressure 161/97 O2 Sat by Pulse 99 Oximetry Medical Decision Making - Medical Decision Making 30-year-old presented for lower shunted swelling. Patient has had significant swelling there is no acute findings at this time she has no chest pain or shortness of breath. Patient will follow-up with echocardiogram she is advised to take her Lasix and return parameters were discussed. - Lab Data Result diagrams: 12/07/20 20:54 12/07/20 20:54 Lab Results 12/07/20 12/07/20 12/07/20 Range/Units 20:54 20:54 20:54 WBC 11.1 H (3.8-10.6) k/uL RBC 4.86 (3.80-5.40) m/uL Hgb 14.8 (11.4-16.0) gm/dL Hct 43.8 (34.0-46.0) % MCV 90.1 (80.0-100.0) fL MCH 30.5 (25.0-35.0) pg MCHC 33.9 (31.0-37.0) g/dL RDW 13.6 (11.5-15.5) % Plt Count 239 (150-450) k/uL MPV 7.1 Neutrophils % 52 % Lymphocytes % 39 % Monocytes % 4 % Eosinophils % 3 % Basophils % 0 % Neutrophils # 5.8 (1.3-7.7) k/uL Lymphocytes # 4.4 (1.0-4.8) k/uL Monocytes # 0.5 (0-1.0) k/uL Eosinophils # 0.3 (0-0.7) k/uL Basophils # 0.1 (0-0.2) k/uL Sodium 139 (137-145) mmol/L Potassium 3.9 (3.5-5.1) mmol/L Chloride 107 (98-107) mmol/L Carbon Dioxide 23 (22-30) mmol/L Anion Gap 9 mmol/L BUN 12 (7-17) mg/dL Creatinine 0.73 (0.52-1.04) mg/dL Est GFR (CKD-EPI)AfAm >90 (>60 ml/min/1.73 sqM) Est GFR (CKD-EPI)NonAf >90 (>60 ml/min/1.73 sqM) Glucose 102 H (74-99) mg/dL Calcium 8.6 (8.4-10.2) mg/dL Magnesium 2.1 (1.6-2.3) mg/dL Total Bilirubin 0.7 (0.2-1.3) mg/dL AST 54 H (14-36) U/L ALT 35 H (4-34) U/L Alkaline Phosphatase 53 (38-126) U/L Troponin I <0.012 (0.000-0.034) ng/mL NT-Pro-B Natriuret Pep pg/mL Total Protein 6.4 (6.3-8.2) g/dL Albumin 3.7 (3.5-5.0) g/dL 12/07/20 Range/Units 20:54 WBC (3.8-10.6) k/uL RBC (3.80-5.40) m/uL Hgb (11.4-16.0) gm/dL Hct (34.0-46.0) % MCV (80.0-100.0) fL MCH (25.0-35.0) pg MCHC (31.0-37.0) g/dL RDW (11.5-15.5) % Plt Count (150-450) k/uL MPV Neutrophils % % Lymphocytes % % Monocytes % % Eosinophils % % Basophils % % Neutrophils # (1.3-7.7) k/uL Lymphocytes # (1.0-4.8) k/uL Monocytes # (0-1.0) k/uL Eosinophils # (0-0.7) k/uL Basophils # (0-0.2) k/uL Sodium (137-145) mmol/L Potassium (3.5-5.1) mmol/L Chloride (98-107) mmol/L Carbon Dioxide (22-30) mmol/L Anion Gap mmol/L BUN (7-17) mg/dL Creatinine (0.52-1.04) mg/dL Est GFR (CKD-EPI)AfAm (>60 ml/min/1.73 sqM) Est GFR (CKD-EPI)NonAf (>60 ml/min/1.73 sqM) Glucose (74-99) mg/dL Calcium (8.4-10.2) mg/dL Magnesium (1.6-2.3) mg/dL Total Bilirubin (0.2-1.3) mg/dL AST (14-36) U/L ALT (4-34) U/L Alkaline Phosphatase (38-126) U/L Troponin I (0.000-0.034) ng/mL NT-Pro-B Natriuret Pep 37 pg/mL Total Protein (6.3-8.2) g/dL Albumin (3.5-5.0) g/dL Disposition Clinical Impression: Pedal edema Disposition: HOME SELF-CARE Condition: Stable Instructions (If sedation given, give patient instructions): Edema (ED) Additional Instructions: Please return to the Emergency Department if symptoms worsen or any other concerns. Is patient prescribed a controlled substance at d/c from ED?: No Referrals: Cale Mayr III, MD [Primary Care Provider] - 1-2 days Time of Disposition: 22:32
[2020-12-07 21:24] LABS: Basophils # (A) 0.1 k/uL (0-0.2); Basophils % (A) 0 %; Eosinophils # (A) 0.3 k/uL (0-0.7); Eosinophils % (A) 3 %; HCT 43.8 % (34.0-46.0); HGB 14.8 gm/dL (11.4-16.0); Lymphocytes # (A) 4.4 k/uL (1.0-4.8); Lymphocytes % (A) 39 %; MCH 30.5 pg (25.0-35.0); MCHC 33.9 g/dL (31.0-37.0); MCV 90.1 fL (80.0-100.0); Mean Platelet Volume 7.1; Monocytes # (A) 0.5 k/uL (0-1.0); Monocytes % (A) 4 %; Neutrophils # (A) 5.8 k/uL (1.3-7.7); Neutrophils % (A) 52 %; Platelet Count 239 k/uL (150-450); RBC 4.86 m/uL (3.80-5.40); RDW 13.6 % (11.5-15.5); WBC 11.1 k/uL (3.8-10.6)
[2020-12-07 22:16] LABS: ALT 35 U/L (4-34); AST 54 U/L (14-36); African American GFR (CKD) >90 (>60 ml/min/1.73 sqM); Albumin 3.7 g/dL (3.5-5.0); Alkaline Phosphatase 53 U/L (38-126); Anion Gap 9 mmol/L; Blood Urea Nitrogen 12 mg/dL (7-17); Calcium 8.6 mg/dL (8.4-10.2); Carbon Dioxide 23 mmol/L (22-30); Chloride 107 mmol/L (98-107); Glucose 102 mg/dL (74-99); Magnesium 2.1 mg/dL (1.6-2.3); Non-African American GFR(CKD) >90 (>60 ml/min/1.73 sqM); Potassium 3.9 mmol/L (3.5-5.1); Sodium 139 mmol/L (137-145); Total Bilirubin 0.7 mg/dL (0.2-1.3); Total Protein 6.4 g/dL (6.3-8.2)
[2020-12-07 23:00] VITALS: BP 158/90; PULSE 91; RESP 18; TEMP 98
== END 2020-12-07 22:58 | disposition home or self-care (01) ==
LOC: EC 19:46
DX: R60.9 Edema, unspecified (principal); F32.9 Major depressive disorder, single episode, unspecified; F41.9 Anxiety disorder, unspecified; Z90.09 Acquired absence of other part of head and neck
CPT/HCPCS: 36415; 93005; 83880; 80053; 83735; 84484; 85025; 99283; 96374; J1940

== ENCOUNTER 2020-12-10 20:58 | Emergency (ER) | payer OTHER ==
[2020-12-10 21:04] VITALS: TEMP 98.4
--- NOTE | 2020-12-10 22:46 | ED ---
Recheck HPI - General Chief Complaint: Headache Stated Complaint: High blood pressure Time Seen by Provider: 12/10/20 22:16 Source: patient, RN notes reviewed, old records reviewed Mode of arrival: ambulatory Limitations: no limitations - History of Present Illness Initial Comments: This is a 30-year-old female DF for evaluation patient is being. Patient coming in for lower extremity edema which has been persistent and elevated blood pressure at home no history of high blood pressure. Patient has a going to some stress lately and admits this is her third ER visit this week. No other new complaints. Not homicidal or suicidal no drugs or alcohol abuse MD Complaint: other (Bilateral lower extremity edema with hypertension) -: days(s) Returns Today for: other (Patient very anxious) Symptoms Since Prior Visit: no new symptoms Context: ran out of medication (Lasix was not working at home) Associated Symptoms: none Treatments Prior to Arrival: other medications (Patient given diuresis) - Related Data Home Medications Medication Instructions Recorded Confirmed ARIPiprazole [Abilify] 15 mg PO HS 05/08/19 12/07/20 Venlafaxine HCl [Effexor XR] 75 mg PO HS 07/06/19 12/07/20 Cyclobenzaprine [Flexeril] 10 mg PO HS PRN 09/10/20 12/07/20 Potassium Chloride ER [K-Dur 20] 20 meq PO BID 12/07/20 12/07/20 Previous Rx's Medication Instructions Recorded Furosemide [Lasix] 20 mg PO BID 5 Days #10 tablet 11/30/20 Allergies Allergy/AdvReac Type Severity Reaction Status Date / Time acetaminophen Allergy Rash/Hives Verified 12/10/20 21:04 [From Excedrin Migraine] caffeine Allergy Rash/Hives Verified 12/10/20 21:04 [From Excedrin Migraine] Review of Systems ROS Statement: Those systems with pertinent positive or pertinent negative responses have been documented in the HPI. ROS Other: All systems not noted in ROS Statement are negative. Past Medical History Additional Past Medical History / Comment(s): Herniated L5-S1, Hip Dysplasia, pilonidal cyst 05/2019 migranes History of Any Multi-Drug Resistant Organisms: None Reported Past Surgical History: Adenoidectomy, Tonsillectomy Additional Past Surgical History / Comment(s): I&D 05/2019 Past Anesthesia/Blood Transfusion Reactions: Family History of Problems w/ Anesthesia Additional Past Anesthesia/Blood Transfusion Reaction / Comment(s): Grandfather with nausea, vomiting and migraines after anesthesia. Past Psychological History: Anxiety, Bipolar, Depression Smoking Status: Never smoker Past Alcohol Use History: Occasional Past Drug Use History: None Reported - Past Family History Mother Family Medical History: Thyroid Disorder Father History Unknown: Yes General Exam Limitations: no limitations General appearance: alert, in no apparent distress, obese Head exam: Present: atraumatic, normocephalic, normal inspection Eye exam: Present: normal appearance, PERRL, EOMI. Absent: scleral icterus, conjunctival injection, periorbital swelling ENT exam: Present: normal exam, mucous membranes moist Neck exam: Present: normal inspection. Absent: tenderness, meningismus, lymphadenopathy Respiratory exam: Present: normal lung sounds bilaterally. Absent: respiratory distress, wheezes, rales, rhonchi, stridor Cardiovascular Exam: Present: regular rate, normal rhythm, normal heart sounds. Absent: systolic murmur, diastolic murmur, rubs, gallop, clicks GI/Abdominal exam: Present: soft, normal bowel sounds. Absent: distended, tenderness, guarding, rebound, rigid Extremities exam: Present: normal inspection, full ROM, normal capillary refill, other (Bilateral lower extremity edema). Absent: tenderness, pedal edema, joint swelling, calf tenderness Back exam: Present: normal inspection Neurological exam: Present: alert, oriented X3, CN II-XII intact Psychiatric exam: Present: normal affect, normal mood Skin exam: Present: warm, dry, intact, normal color. Absent: rash Course Vital Signs 12/10/20 12/10/20 12/10/20 21:01 22:04 22:50 Temperature 98.4 F Pulse Rate 94 77 80 Respiratory 18 16 18 Rate Blood Pressure 140/93 128/74 120/72 O2 Sat by Pulse 100 97 97 Oximetry - Reevaluation(s) Reevaluation #1: Medical record is reviewed Patient symptoms are improved here in the ER Patient informed results and questions have been answered Patient family feel comfortable for discharge Medical Decision Making - Medical Decision Making 30 female to the ER for evaluation patient very anxious here over blood pressure and leg swelling. No acute findings here in the ER, patient can be discharged Disposition Clinical Impression: Hypertension, Bilateral leg edema, Localized swelling of both lower legs Disposition: HOME SELF-CARE Condition: Good Instructions (If sedation given, give patient instructions): Leg Edema (ED) Is patient prescribed a controlled substance at d/c from ED?: No Referrals: Cale Mary III, MD [Primary Care Provider] - 1-2 days
[2020-12-10 22:52] VITALS: BP 120/72; PULSE 80; RESP 18
== END 2020-12-10 22:51 | disposition home or self-care (01) ==
LOC: EC 20:58
DX: I10 Essential (primary) hypertension (principal); M79.89 Other specified soft tissue disorders; R60.0 Localized edema; F41.9 Anxiety disorder, unspecified; F32.9 Major depressive disorder, single episode, unspecified; Z79.899 Other long term (current) drug therapy; Z88.6 Allergy status to analgesic agent; Z91.018 Allergy to other foods
CPT/HCPCS: 99284

== ENCOUNTER → 2020-12-14 | Outpatient (CLI) | payer OTHER ==
--- NOTE | 2020-12-15 07:52 | ECHOF ---
Referral Reason:R06.00 dyspnea MEASUREMENTS -------- HEIGHT: 170.2 cm WEIGHT: 154.2 kg BP: 133/81 RVIDd: 2.8 cm (< 3.3) IVSd: 1.1 cm (0.6 - 1.1) LVIDd: 4.8 cm (3.9 - 5.3) LVPWd: 1.2 cm (0.6 - 1.1) IVSs: 1.7 cm LVIDs: 2.9 cm LVPWs: 1.6 cm LA Diam: 3.2 cm (2.7 - 3.8) LAESV Index (A-L): 18.99 ml/m Ao Diam: 3.0 cm (2.0 - 3.7) AV Cusp: 2.2 cm (1.5 - 2.6) MV EXCURSION: 10.065 mm (> 18.000) MV EF SLOPE: 171 mm/s (70 - 150) EPSS: 0.7 cm MV E Paresh: 0.94 m/s MV DecT: 259 ms MV A Paresh: 0.65 m/s MV E/A Ratio: 1.45 RAP: 5.00 mmHg RVSP: 21.56 mmHg FINDINGS -------- Sinus rhythm. This was a technically adequate study. The left ventricular size is normal. There is borderline concentric left ventricular hypertrophy. Overall left ventricular systolic function is normal with, an EF between 55 - 60 %. The diastolic filling pattern is normal for the age of the patient 9.48. The right ventricle is normal in size. Normal LA size by volume 22+/-6 ml/m2. The right atrial size is normal. Interatrial and interventricular septum intact. The aortic valve is trileaflet, and appears structurally normal. No aortic stenosis or regurgitation. The mitral valve is normal. No mitral regurgitation. The tricuspid valve appears structurally normal. Mild tricuspid regurgitation present. Right vent ricular systolic pressure is normal at < 35 mmHg. The pulmonic valve was not well visualized. The aortic root size is normal. Normal inferior vena cava with normal inspiratory collapse consistent with estimated right atrial pre ssure of 5 mmHg. There is no pericardial effusion. CONCLUSIONS -------- 1. There is borderline concentric left ventricular hypertrophy. 2. Overall left ventricular systolic function is normal with, an EF between 55 - 60 %. 3. Normal LA size by volume 22+/-6 ml/m2. 4. The aortic valve is trileaflet, and appears structurally normal. No aortic stenosis or regurgitati on. 5. Mild tricuspid regurgitation present. 6. There is no pericardial effusion. RN HEMATOLOGY: Cony Reynolds RDCS
== END ==
LOC: RADECHMAIN 13:56
PROVIDERS: ATTEND Family Medicine
DX: I07.1 Rheumatic tricuspid insufficiency (principal)
CPT/HCPCS: 93306

== ENCOUNTER 2020-12-21 21:16 | Emergency (ER) | payer OTHER ==
[2020-12-21] MEDS ORDERED: FUROSEMIDE 10 MG/ML 4 ML VIAL IV STA (21:33)
--- NOTE | 2020-12-21 21:57 | XR ---
EXAMINATION TYPE: XR chest 1V portable DATE OF EXAM: 12/21/2020 COMPARISON: 11/30/2020 HISTORY: Edema. Chest pain. TECHNIQUE: FINDINGS: Exam limited by patient's size. Lungs appear clear. There is no heart failure. There are no hilar masses. There is no pleural effusion. IMPRESSION: No active cardiopulmonary disease. No change.
--- NOTE | 2020-12-21 22:24 | ED ---
General Adult HPI - General Chief complaint: Extremity Problem,Nontraumatic Stated complaint: Edema Time Seen by Provider: 12/21/20 21:21 Source: patient, RN notes reviewed Mode of arrival: ambulatory Limitations: no limitations - History of Present Illness Initial comments: 30-year-old female presents to the emergency room for chief complaint of bilate ral feet swelling. Patient reports she has had foot swelling bilaterally for the past 5-6 weeks. Patient states she has been seen here and had an in-depth evaluation. States she had an outpatient echocardiogram and CTA of the chest. Patient has not had results back on these. Patient states that oral Lasix does not seem to help so she feels that weekly she needs to come in for 1 dose of IV Lasix which does seem to take, swelling in her feet. Patient denies any chest pain or shortness of breath. She denies any pain in her calves. Patient has no other complaints at this time including shortness of breath, chest pain, abdominal pain, nausea or vomiting, headache, or visual changes. - Related Data Home Medications Medication Instructions Recorded Confirmed ARIPiprazole [Abilify] 15 mg PO HS 05/08/19 12/07/20 Venlafaxine HCl [Effexor XR] 75 mg PO HS 07/06/19 12/07/20 Cyclobenzaprine [Flexeril] 10 mg PO HS PRN 09/10/20 12/07/20 Potassium Chloride ER [K-Dur 20] 20 meq PO BID 12/07/20 12/07/20 Previous Rx's Medication Instructions Recorded Furosemide [Lasix] 20 mg PO BID 5 Days #10 tablet 11/30/20 Allergies Allergy/AdvReac Type Severity Reaction Status Date / Time acetaminophen Allergy Rash/Hives Verified 12/10/20 21:04 [From Excedrin Migraine] caffeine Allergy Rash/Hives Verified 12/10/20 21:04 [From Excedrin Migraine] Review of Systems ROS Statement: Those systems with pertinent positive or pertinent negative responses have been documented in the HPI. ROS Other: All systems not noted in ROS Statement are negative. Past Medical History Additional Past Medical History / Comment(s): Herniated L5-S1, Hip Dysplasia, pilonidal cyst 05/2019 migranes History of Any Multi-Drug Resistant Organisms: None Reported Past Surgical History: Adenoidectomy, Tonsillectomy Additional Past Surgical History / Comment(s): I&D 05/2019 Past Anesthesia/Blood Transfusion Reactions: Family History of Problems w/ Anesthesia Additional Past Anesthesia/Blood Transfusion Reaction / Comment(s): Grandfather with nausea, vomiting and migraines after anesthesia. Past Psychological History: Anxiety, Bipolar, Depression Smoking Status: Never smoker Past Alcohol Use History: Occasional Past Drug Use History: None Reported - Past Family History Mother Family Medical History: Thyroid Disorder Father History Unknown: Yes General Exam Limitations: no limitations General appearance: alert, in no apparent distress Head exam: Present: atraumatic, normocephalic, normal inspection Eye exam: Present: normal appearance, PERRL, EOMI. Absent: scleral icterus, conjunctival injection, periorbital swelling ENT exam: Present: normal exam, mucous membranes moist Neck exam: Present: normal inspection, full ROM. Absent: tenderness, meningismus, lymphadenopathy Respiratory exam: Present: normal lung sounds bilaterally. Absent: respiratory distress, wheezes, rales, rhonchi, stridor Cardiovascular Exam: Present: regular rate, normal rhythm, normal heart sounds. Absent: systolic murmur, diastolic murmur, rubs, gallop, clicks GI/Abdominal exam: Present: soft, normal bowel sounds. Absent: distended, tenderness, guarding, rebound, rigid Extremities exam: Present: normal capillary refill (Capillary refill less than 2 seconds, DP pulse 2+ bilaterally.), pedal edema (Patient has nonpitting edema noted of the bilateral feet.), other (Sensation intact bilaterally.). Absent: calf tenderness (No calf tenderness or redness bilaterally, negative Homans sign.) Course Vital Signs 12/21/20 21:17 Temperature 98.2 F Pulse Rate 87 Respiratory 18 Rate Blood Pressure 143/85 O2 Sat by Pulse 98 Oximetry Medical Decision Making - Medical Decision Making I did review patient's previous laboratory evaluation. BNP was repeated November 30 as well as December 07 and was stable at 37. Echocardiogram showed a normal ejection fraction between 55-60%. Diastolic filling pattern is normal for patient's age. Today vitals are stable. HIV physical exam as documented. Previous evaluations were reviewed. Patient has had a complete emergency department even though 2 within the past 6 weeks for this. She is only presenting today for dose of IV Lasix. I did repeat a chest x-ray that looked normal. Patient states she does have a follow-up appointment coming up with the gunner's mate that she will attend. Patient will return here for any worsening symptoms. Disposition Clinical Impression: Pedal edema Disposition: HOME SELF-CARE Condition: Good Instructions (If sedation given, give patient instructions): Leg Edema (ED) Additional Instructions: Please keep feet elevated. Use compression stockings if possible. Follow-up with primary care and cardiology. Return to the emergency room for any worsening symptoms. Is patient prescribed a controlled substance at d/c from ED?: No Referrals: Cale Mary III, MD [Primary Care Provider] - 1-2 days Time of Disposition: 22:27
[2020-12-21 23:07] VITALS: BP 138/81; PULSE 72; RESP 16; TEMP 98
== END 2020-12-21 23:00 | disposition home or self-care (01) ==
LOC: EC 21:16
DX: R60.0 Localized edema (principal); F32.9 Major depressive disorder, single episode, unspecified; F41.9 Anxiety disorder, unspecified; Z79.899 Other long term (current) drug therapy
CPT/HCPCS: 71045; 99283; 96374; J1940

== ENCOUNTER 2020-12-23 11:21 | Emergency (ER) | payer OTHER ==
[2020-12-23 11:50] VITALS: TEMP 98
[2020-12-23] MEDS ORDERED: FUROSEMIDE 10 MG/ML 2 ML VIAL IV ONE (12:27)
--- NOTE | 2020-12-23 12:31 | ED ---
General Adult HPI - General Chief complaint: Shortness of Breath Stated complaint: edema Time Seen by Provider: 12/23/20 12:15 Source: patient Mode of arrival: ambulatory Limitations: no limitations - History of Present Illness Initial comments: This is a 30-year-old female with a history of migraines, herniated disc who presents emergency department for lower [place] edema, shortness of breath, and chest tightness. The patient states that her symptoms been going on for last 5 weeks. She states that they have been mostly unchanged. She's been emergency department multiple times for this and had workup which was unremarkable. She was here 2 days ago for similar complaints and had a chest x-ray that was unremarkable. She states that typically she will get a dose of Lasix and would bring the swelling down however 2 days ago she had also Lasix and it did not seem to improve her symptoms. She states that she also used to be on Lasix 20 mg twice a day which she did for about a week which also did not seem to help. She's followed up with her cyber crime investigator, Dr. Byrd, who did an echocardiogram which was unremarkable and also did a CTA which she is on aware of the results for. She states that her symptoms have been persistent and now s he started to get some tingling and some pain in her lower extremities below the knee. She states that she has been having conversational dyspnea and also occasional chest tightness is not exertional. He states that she is here because she wants to see if there is any thing else might be going on. She states that she's also attempted compression socks at home without much relief and she states that she does work in a sedentary job however does get up and walk every 45 minutes at her job. She denies any history of any liver problems. No clotting disorders. No history of heart problems in the past. No other complaints. - Related Data Home Medications Medication Instructions Recorded Confirmed ARIPiprazole [Abilify] 15 mg PO HS 05/08/19 12/23/20 Venlafaxine HCl [Effexor XR] 75 mg PO HS 07/06/19 12/23/20 Cyclobenzaprine [Flexeril] 10 mg PO HS PRN 09/10/20 12/23/20 Allergies Allergy/AdvReac Type Severity Reaction Status Date / Time caffeine AdvReac Face Verified 12/23/20 12:29 [From Excedrin Migraine] tingles Review of Systems ROS Statement: Those systems with pertinent positive or pertinent negative responses have been documented in the HPI. ROS Other: All systems not noted in ROS Statement are negative. Past Medical History Additional Past Medical History / Comment(s): Herniated L5-S1, Hip Dysplasia, pilonidal cyst 05/2019 migranes History of Any Multi-Drug Resistant Organisms: None Reported Past Surgical History: Adenoidectomy, Tonsillectomy Additional Past Surgical History / Comment(s): I&D 05/2019 Past Anesthesia/Blood Transfusion Reactions: Family History of Problems w/ Anest hesia Additional Past Anesthesia/Blood Transfusion Reaction / Comment(s): Grandfather with nausea, vomiting and migraines after anesthesia. Past Psychological History: Anxiety, Bipolar, Depression Smoking Status: Never smoker Past Alcohol Use History: Occasional Past Drug Use History: None Reported - Past Family History Mother Family Medical History: Thyroid Disorder Father History Unknown: Yes General Exam - General Exam Comments Initial Comments: Constitutional: Awake alert Appears comfortable Head: Normocephalic atraumatic Eyes: no conjunctival injection No scleral icterus EOMI Neck: No JVD Supple Heart: Regular rate rhythm normal S1-S2 no murmurs Lungs: Clear to auscultation bilaterally No wheezing No rales Abdomen: Soft nondistended nontender Extremities: There is bilateral pitting edema up to the knees DP pulses intact Radial pulses intact Neuro: A&Ox3 No focal neurologic deficits, the patient has 5 out of 5 strength with plantar flexion and dorsiflexion bilaterally. She has sensation intact in bilateral lower extremities to light touch Psych: Appropriate mood and affect Limitations: no limitations Course Vital Signs 12/23/20 12/23/20 11:47 13:00 Temperature 98.0 F Pulse Rate 93 Pulse Rate [ 90 Quality Assurance Monitor Final ] Respiratory 24 20 Rate Blood Pressure 147/99 O2 Sat by Pulse 100 Oximetry EKG Findings - EKG Comments: EKG Findings:: EKG showing normal sinus rhythm with a rate of 77. There are no abnormal ST 7 changes or T-wave inversions. QTC is 448. Other intervals are normal. No ectopy. Medical Decision Making - Medical Decision Making Is a 30-year-old female who presents emergency department for lower extremity edema, shortness of breath, chest tightness. The patient had workup performed included an EKG and blood work which were all unremarkable. Patient has not had any venous Dopplers and thus wished these were performed today. Venous Dopplers were negative for DVT. Patient was given 1 dose of IV Lasix here. Patient's had multiple chest x-rays and stated that she did not want another one today. She states her symptoms have not progressed. I told her that I suspect she has some type of lymphedema or dependent edema. I encouraged to use compression stockings at home while she is awake. She is to follow-up with her primary doctor for further evaluation. At this time she's had multiple emergency department workups that was unremarkable. She likely requires further evaluation treatment as an outpatient setting. Told that she always return should worsening or changing symptoms. All questions were answered. - Lab Data Result diagrams: 12/23/20 12:48 12/23/20 12:48 Lab Results 12/23/20 12/23/20 12/23/20 Range/Units 12:48 12:48 12:48 WBC 9.4 (3.8-10.6) k/uL RBC 4.89 (3.80-5.40) m/uL Hgb 14.5 (11.4-16.0) gm/dL Hct 44.0 (34.0-46.0) % MCV 90.0 (80.0-100.0) fL MCH 29.7 (25.0-35.0) pg MCHC 33.0 (31.0-37.0) g/dL RDW 13.6 (11.5-15.5) % Plt Count 281 (150-450) k/uL MPV 7.5 Neutrophils % 59 % Lymphocytes % 32 % Monocytes % 3 % Eosinophils % 3 % Basophils % 0 % Neutrophils # 5.6 (1.3-7.7) k/uL Lymphocytes # 3.1 (1.0-4.8) k/uL Monocytes # 0.3 (0-1.0) k/uL Eosinophils # 0.3 (0-0.7) k/uL Basophils # 0.0 (0-0.2) k/uL Sodium 139 (137-145) mmol/L Potassium 3.6 (3.5-5.1) mmol/L Chloride 107 (98-107) mmol/L Carbon Dioxide 28 (22-30) mmol/L Anion Gap 4 mmol/L BUN 11 (7-17) mg/dL Creatinine 0.69 (0.52-1.04) mg/dL Est GFR (CKD-EPI)AfAm >90 (>60 ml/min/1.73 sqM) Est GFR (CKD-EPI)NonAf >90 (>60 ml/min/1.73 sqM) Glucose 102 H (74-99) mg/dL Calcium 8.5 (8.4-10.2) mg/dL Total Bilirubin 0.7 (0.2-1.3) mg/dL AST 22 (14-36) U/L ALT 27 (4-34) U/L Alkaline Phosphatase 60 (38-126) U/L NT-Pro-B Natriuret Pep 49 pg/mL Total Protein 6.1 L (6.3-8.2) g/dL Albumin 3.5 (3.5-5.0) g/dL Disposition Clinical Impression: Lower extremity edema Disposition: HOME SELF-CARE Condition: Stable Instructions (If sedation given, give patient instructions): Leg Edema (ED) Is patient prescribed a controlled substance at d/c from ED?: No Referrals: Cale Mary III, MD [Primary Care Provider] - 1-2 days
[2020-12-23 12:57] LABS: Basophils % (A) 0 %; Eosinophils # (A) 0.3 k/uL (0-0.7); Eosinophils % (A) 3 %; HGB 14.5 gm/dL (11.4-16.0); Lymphocytes # (A) 3.1 k/uL (1.0-4.8); Lymphocytes % (A) 32 %; MCH 29.7 pg (25.0-35.0); Mean Platelet Volume 7.5; Monocytes # (A) 0.3 k/uL (0-1.0); Monocytes % (A) 3 %; Neutrophils # (A) 5.6 k/uL (1.3-7.7); Neutrophils % (A) 59 %; Platelet Count 281 k/uL (150-450); RBC 4.89 m/uL (3.80-5.40); RDW 13.6 % (11.5-15.5); WBC 9.4 k/uL (3.8-10.6)
[2020-12-23 13:09] LABS: ALT 27 U/L (4-34); AST 22 U/L (14-36); African American GFR (CKD) >90 (>60 ml/min/1.73 sqM); Albumin 3.5 g/dL (3.5-5.0); Alkaline Phosphatase 60 U/L (38-126); Anion Gap 4 mmol/L; Blood Urea Nitrogen 11 mg/dL (7-17); Calcium 8.5 mg/dL (8.4-10.2); Carbon Dioxide 28 mmol/L (22-30); Chloride 107 mmol/L (98-107); Glucose 102 mg/dL (74-99); Non-African American GFR(CKD) >90 (>60 ml/min/1.73 sqM); Potassium 3.6 mmol/L (3.5-5.1); Sodium 139 mmol/L (137-145); Total Bilirubin 0.7 mg/dL (0.2-1.3); Total Protein 6.1 g/dL (6.3-8.2)
--- NOTE | 2020-12-23 13:53 | US ---
EXAMINATION TYPE: US venous doppler duplex LE BI DATE OF EXAM: 12/23/2020 1:31 PM COMPARISON: NONE CLINICAL HISTORY: Edema. edema in legs for 5 weeks, patient comes to have Lasix routinely, no h/o dvt SIDE PERFORMED: Bilateral TECHNIQUE: The lower extremity deep venous system is examined utilizing real time linear array sonog fay with graded compression, doppler sonography and color-flow sonography. VESSELS IMAGED: Common Femoral Vein Deep Femoral Vein Greater Saphenous Vein * Femoral Vein - duplicate dist fv Popliteal Vein Small Saphenous Vein * Proximal Calf Veins (* superficial vessels) 340lb patient with edema, unable to obtain GSV or compression images within groin due to size. Right Leg: Limited scan appears negative for DVT Left Leg: Limited scan appears negative for DVT IMPRESSION: 1. Visualized Bilateral lower extremity ultrasound negative for deep venous thrombosis.
[2020-12-23 14:39] VITALS: BP 136/85; PULSE 89; RESP 16
== END 2020-12-23 14:38 | disposition home or self-care (01) ==
LOC: EC 11:21
DX: R60.0 Localized edema (principal); F32.9 Major depressive disorder, single episode, unspecified; F41.9 Anxiety disorder, unspecified
CPT/HCPCS: 36415; 93005; 83880; 80053; 85025; 93970; 99285; 96374; J1940

== ENCOUNTER 2021-05-05 17:33 | Emergency (ER) | payer OTHER ==
[2021-05-05 17:37] VITALS: BP 135/93; PULSE 77; RESP 16; TEMP 97.9
[2021-05-05] MEDS ORDERED: diphenhydrAMINE 50 MG/ML 1 ML VIAL IVP STA (17:56)
[2021-05-05] MEDS ORDERED: KETOROLAC 15 MG/ML 1 ML VIAL IVP STA (17:56)
[2021-05-05] MEDS ORDERED: METOCLOPRAMIDE 5 MG/ML 2 ML VIAL IVP STA (17:56)
[2021-05-05] MEDS ORDERED: SODIUM CHLORIDE 0.9% 1,000 ML IV STA (17:56)
--- NOTE | 2021-05-05 18:59 | ED ---
Headache HPI - General Chief Complaint: Headache Stated Complaint: Headache Time Seen by Provider: 05/05/21 17:40 Mode of arrival: ambulatory Limitations: no limitations - History of Present Illness Initial Comments: 30-year-old female with history of migraines presents emergency Department with a chief complaint of a migraine. Reports the symptoms began about 2 days ago, left-sided headache without any radiation. Reports photophobia with nausea but no vomiting. Denies any associated visual changes lightheadedness or dizziness. Denies any one-sided weakness or paresthesias. Gradual onset headache and not the worst headache of her life. States she comes to the emergency department which she is not able to control it at home. - Related Data Home Medications Medication Instructions Recorded Confirmed ARIPiprazole [Abilify] 15 mg PO HS 05/08/19 12/23/20 Venlafaxine HCl [Effexor XR] 75 mg PO HS 07/06/19 12/23/20 Cyclobenzaprine [Flexeril] 10 mg PO HS PRN 09/10/20 12/23/20 Previous Rx's Medication Instructions Recorded Ondansetron Odt [Zofran Odt] 4 mg PO Q8HR PRN #10 tab 05/05/21 Allergies Allergy/AdvReac Type Severity Reaction Status Date / Time caffeine AdvReac Face Verified 05/05/21 17:37 [From Excedrin Migraine] tingles Review of Systems ROS Statement: Those systems with pertinent positive or pertinent negative responses have been documented in the HPI. ROS Other: All systems not noted in ROS Statement are negative. Past Medical History Additional Past Medical History / Comment(s): Herniated L5-S1, Hip Dysplasia, pilonidal cyst 05/2019 migranes History of Any Multi-Drug Resistant Organisms: None Reported Past Surgical History: Adenoidectomy, Tonsillectomy Additional Past Surgical History / Comment(s): I&D 05/2019 Past Anesthesia/Blood Transfusion Reactions: Family History of Problems w/ Anesthesia Additional Past Anesthesia/Blood Transfusion Reaction / Comment(s): Grandfather with nausea, vomiting and migraines after anesthesia. Past Psychological History: Anxiety, Bipolar, Depression Smoking Status: Never smoker Past Alcohol Use History: Occasional Past Drug Use History: None Reported - Past Family History Mother Family Medical History: Thyroid Disorder Father History Unknown: Yes General Exam Limitations: no limitations General appearance: alert, in no apparent distress, obese Head exam: Present: atraumatic, normocephalic, normal inspection Eye exam: Present: normal appearance, PERRL, EOMI Pupils: Present: normal accommodation ENT exam: Present: normal exam, normal oropharynx, mucous membranes moist Neck exam: Present: normal inspection, full ROM. Absent: tenderness, lymphadenopathy Respiratory exam: Present: normal lung sounds bilaterally. Absent: respiratory distress, wheezes, rales Cardiovascular Exam: Present: regular rate, normal rhythm, normal heart sounds. Absent: systolic murmur Extremities exam: Present: normal inspection, full ROM, normal capillary refill. Absent: tenderness, pedal edema, joint swelling Back exam: Present: normal inspection, full ROM. Absent: tenderness Neurological exam: Present: alert, oriented X3, CN II-XII intact, normal gait Psychiatric exam: Present: normal affect, normal mood Skin exam: Present: warm, dry, intact, normal color Course Vital Signs 05/05/21 17:35 Temperature 97.9 F Pulse Rate 77 Respiratory 16 Rate Blood Pressure 135/93 O2 Sat by Pulse 97 Oximetry Medical Decision Making - Medical Decision Making 30-year-old female with history migrants presents to emergency Department with a chief complaint of migraine. Physical examination, no focal neural deficits. Patient was given IV fluids, Reglan, Benadryl and Toradol. On reevaluation, she reports significant extremities symptoms. Patient states she feels comfortable going home. I will send her discussion for [place]. Return parameters were thoroughly discussed with patient was upsetting agreeable. Case discussed with Dr. Oliver. Disposition Clinical Impression: Migraine headache Disposition: HOME SELF-CARE Condition: Stable Instructions (If sedation given, give patient instructions): Acute Headache (ED) Additional Instructions: Please return to the Emergency Department if symptoms worsen or any other concerns. Is patient prescribed a controlled substance at d/c from ED?: No Referrals: Cale Mary III, MD [Primary Care Provider] - 1-2 days Time of Disposition: 18:59
== END 2021-05-05 19:15 | disposition home or self-care (01) ==
LOC: EC 17:33
DX: G43.909 Migraine, unspecified, not intractable, without status migrainosus (principal); F31.9 Bipolar disorder, unspecified; F41.9 Anxiety disorder, unspecified; E66.9 Obesity, unspecified; Z79.899 Other long term (current) drug therapy; Z68.43 Body mass index [BMI] 50.0-59.9, adult
CPT/HCPCS: 96374; 96375 ×2; 96361; 99283; J1200; J2765; J1885

== ENCOUNTER 2021-09-08 14:21 | Emergency (ER) | payer OTHER ==
[2021-09-08 14:31] VITALS: BP 146/94; PULSE 89; TEMP 99.4
--- NOTE | 2021-09-08 15:20 | ED ---
URI HPI - General Chief Complaint: Upper Respiratory Infection Stated Complaint: Chest pain,congestion,body aches Time Seen by Provider: 09/08/21 15:05 Source: patient, RN notes reviewed Mode of arrival: ambulatory Limitations: no limitations - History of Present Illness Initial Comments: This a 30-year-old female presents emergency department with chief complaint of concerns of COVID-19. She states she was exposed she has mild cough congestion bodyaches no reported fever. Patient denies any chest pain or significant shortness of breath. Patient denies any GI symptoms or associated complaints. - Related Data Home Medications Medication Instructions Recorded Confirmed ARIPiprazole [Abilify] 15 mg PO HS 05/08/19 12/23/20 Venlafaxine HCl [Effexor XR] 75 mg PO HS 07/06/19 12/23/20 Cyclobenzaprine [Flexeril] 10 mg PO HS PRN 09/10/20 12/23/20 Previous Rx's Medication Instructions Recorded Ondansetron Odt [Zofran Odt] 4 mg PO Q8HR PRN #10 tab 05/05/21 Allergies Allergy/AdvReac Type Severity Reaction Status Date / Time caffeine AdvReac Face Verified 05/05/21 17:37 [From Excedrin Migraine] tingles Review of Systems ROS Statement: Those systems with pertinent positive or pertinent negative responses have been documented in the HPI. ROS Other: All systems not noted in ROS Statement are negative. Past Medical History Additional Past Medical History / Comment(s): Herniated L5-S1, Hip Dysplasia, pilonidal cyst 05/2019 migranes History of Any Multi-Drug Resistant Organisms: None Reported Past Surgical History: Adenoidectomy, Tonsillectomy Additional Past Surgical History / Comment(s): I&D 05/2019 Past Anesthesia/Blood Transfusion Reactions: Family History of Problems w/ Anesthesia Additional Past Anesthesia/Blood Transfusion Reaction / Comment(s): Grandfather with nausea, vomiting and migraines after anesthesia. Past Psychological History: Anxiety, Bipolar, Depression Smoking Status: Never smoker Past Alcohol Use History: Occasional Past Drug Use History: None Reported - Past Family History Mother Family Medical History: Thyroid Disorder Father History Unknown: Yes General Exam Limitations: no limitations General appearance: alert, in no apparent distress Head exam: Present: atraumatic, normocephalic, normal inspection Eye exam: Present: normal appearance, PERRL, EOMI. Absent: scleral icterus, conjunctival injection, periorbital swelling ENT exam: Present: normal exam, normal oropharynx, mucous membranes moist Neck exam: Present: normal inspection, full ROM. Absent: tenderness, meningismus, lymphadenopathy Respiratory exam: Present: normal lung sounds bilaterally. Absent: respiratory distress, wheezes, rales, rhonchi, stridor Cardiovascular Exam: Present: regular rate, normal rhythm, normal heart sounds. Absent: systolic murmur, diastolic murmur, rubs, gallop, clicks Course Vital Signs 09/08/21 14:26 Temperature 99.4 F Pulse Rate 89 Respiratory 22 Rate Blood Pressure 146/94 O2 Sat by Pulse 99 Oximetry Medical Decision Making - Medical Decision Making Patient has negative COVID-19. Patient will be discharged in stable condition return parameters were discussed - Lab Data Lab Results 09/08/21 Range/Units 14:32 Coronavirus (PCR) Not Detected (Not Detectd) Disposition Clinical Impression: Acute upper respiratory infection Disposition: HOME SELF-CARE Condition: Stable Instructions (If sedation given, give patient instructions): Upper Respiratory Infection (ED) Additional Instructions: Please return to the Emergency Department if symptoms worsen or any other concerns. Is patient prescribed a controlled substance at d/c from ED?: No Referrals: Cale Mary III, MD [Primary Care Provider] - 1-2 days Time of Disposition: 15:20
[2021-09-08 15:40] VITALS: RESP 18
== END 2021-09-08 15:41 | disposition home or self-care (01) ==
LOC: EC 14:21
DX: J06.9 Acute upper respiratory infection, unspecified (principal); F41.9 Anxiety disorder, unspecified; F31.9 Bipolar disorder, unspecified; Z20.822 Contact with and (suspected) exposure to COVID-19; Z90.89 Acquired absence of other organs
CPT/HCPCS: 87635; 99283

== ENCOUNTER 2021-09-20 11:01 | Emergency (ER) | payer OTHER ==
[2021-09-20 11:50] VITALS: BP 123/83; PULSE 85; RESP 18; TEMP 98.4
--- NOTE | 2021-09-20 13:42 | XR ---
EXAMINATION TYPE: XR chest 2V DATE OF EXAM: 09/20/2021 COMPARISON: 12/21/2020 TECHNIQUE: PA and lateral views submitted. HISTORY: Shortness of breath FINDINGS: The lungs are clear and there is no pneumothorax, pleural effusion, or focal pneumonia. Heart size normal. No overt failure. Mildly coarsened central interstitium. IMPRESSION: 1. Correlate for mild bronchitis or interstitial pneumonitis..
--- NOTE | 2021-09-20 15:38 | ED ---
URI HPI - General Chief Complaint: Upper Respiratory Infection Stated Complaint: Covid Test Source: patient Mode of arrival: ambulatory Limitations: no limitations - History of Present Illness Initial Comments: 30-year-old female presents emergency department requesting Covid test. States that for the past 2 days she has had a sore throat and nonproductive cough. Admits to mild shortness of breath. No previous history of cardiac or pulmonary disease denies any chest pain. No concern for . No other alleviating, precipitating or roughing factors - Related Data Home Medications Medication Instructions Recorded Confirmed ARIPiprazole [Abilify] 15 mg PO HS 05/08/19 09/20/21 Venlafaxine HCl [Effexor XR] 75 mg PO HS 07/06/19 09/20/21 Cyclobenzaprine [Flexeril] 5 mg PO BID PRN 09/20/21 09/20/21 Lisdexamfetamine Dimesylate 60 mg PO DAILY PRN 09/20/21 09/20/21 [Vyvanse] Previous Rx's Medication Instructions Recorded Albuterol Inhaler [Ventolin Hfa 2 puff INHALATION RT-QID #8 gm 09/20/21 Inhaler] predniSONE [Deltasone] 20 mg PO BID #10 tab 09/20/21 Allergies Allergy/AdvReac Type Severity Reaction Status Date / Time caffeine AdvReac Face Verified 09/20/21 15:00 [From Excedrin Migraine] tingles Review of Systems ROS Statement: Those systems with pertinent positive or pertinent negative responses have been documented in the HPI. ROS Other: All systems not noted in ROS Statement are negative. Past Medical History Additional Past Medical History / Comment(s): Herniated L5-S1, Hip Dysplasia, pilonidal cyst 05/2019 migranes History of Any Multi-Drug Resistant Organisms: None Reported Past Surgical History: Adenoidectomy, Tonsillectomy Additional Past Surgical History / Comment(s): I&D 05/2019 Past Anesthesia/Blood Transfusion Reactions: Family History of Problems w/ Anesthesia Additional Past Anesthesia/Blood Transfusion Reaction / Comment(s): Grandfather with nausea, vomiting and migraines after anesthesia. Past Psychological History: Anxiety, Bipolar, Depression Smoking Status: Never smoker Past Alcohol Use History: Occasional Past Drug Use History: Marijuana - Past Family History Mother Family Medical History: Thyroid Disorder Father History Unknown: Yes General Exam Limitations: no limitations Course Vital Signs 09/20/21 11:48 Temperature 98.4 F Pulse Rate 85 Respiratory 18 Rate Blood Pressure 123/83 O2 Sat by Pulse 100 Oximetry Medical Decision Making - Medical Decision Making The patient is placed into hallway 11. A thorough history and physical exam is performed. Patient's Covid swab is negative. Chest x-ray does demonstrate a bronchitis picture. Prescription for albuterol and steroids since the pharmacy. Patient discharged home in stable condition - Lab Data Lab Results 09/20/21 Range/Units 11:45 Coronavirus (PCR) Not Detected (Not Detectd) Disposition Clinical Impression: Cough, Bronchitis Disposition: HOME SELF-CARE Condition: Stable Instructions (If sedation given, give patient instructions): Acute Bronchitis (ED) Additional Instructions: Follow up with your primary care doctor in 2-4 days. Return to the emergency department for any new or worsening symptoms Prescriptions: predniSONE [Deltasone] 20 mg PO BID #10 tab Albuterol Inhaler [Ventolin Hfa Inhaler] 2 puff INHALATION RT-QID #8 gm Is patient prescribed a controlled substance at d/c from ED?: No Referrals: Cale Mary III, MD [Primary Care Provider] - 1-2 days Time of Disposition: 15:38
== END 2021-09-20 15:43 | disposition home or self-care (01) ==
LOC: EC 11:01
DX: J20.9 Acute bronchitis, unspecified (principal); F41.9 Anxiety disorder, unspecified; F31.9 Bipolar disorder, unspecified; F12.90 Cannabis use, unspecified, uncomplicated; Z20.822 Contact with and (suspected) exposure to COVID-19
CPT/HCPCS: 71046; 87635; 99285